=== PATIENT | female | born 2000 ===

== ENCOUNTER 2020-04-17 17:32 | Outpatient (REF) | payer MEDICAID, SELFPAY ==
--- NOTE | ~2020-04-17 | US_ITS ---
EXAMINATION: US OBSTETRICAL LESS THAN 14 WEEKS US OBSTETRICAL TRANSVAGINAL CLINICAL INFORMATION: Bleeding and cramping in early . COMPARISON: None TECHNIQUE: Pelvic ultrasound was performed both endovaginally and transabdominally. FINDINGS: A thickened heterogeneous endometrium is present measuring 1.4 cm. Some persistent components are present within the endometrium and some may be pulsatile or hypervascular. A gestational sac or pole is not seen. Findings could represent retained products of conception. The ovaries appear unremarkable with the right measuring 2.1 x 1.4 x 2.0 cm and the left measuring 2.5 x 1.8 x 2.0 cm. No free fluid is present in the cul-de-sac. US/US OB transvaginal IMPRESSION: A gestational sac or pole was not seen. The endometrium is thickened with some cystic components possibly representing retained products of conception. Please correlate with hCG levels and consider follow up ultrasound study.
--- NOTE | ~2020-04-17 | US_ITS ---
EXAMINATION: US OBSTETRICAL LESS THAN 14 WEEKS US OBSTETRICAL TRANSVAGINAL CLINICAL INFORMATION: Bleeding and cramping in early . COMPARISON: None TECHNIQUE: Pelvic ultrasound was performed both endovaginally and transabdominally. FINDINGS: A thickened heterogeneous endometrium is present measuring 1.4 cm. Some persistent components are present within the endometrium and some may be pulsatile or hypervascular. A gestational sac or pole is not seen. Findings could represent retained products of conception. The ovaries appear unremarkable with the right measuring 2.1 x 1.4 x 2.0 cm and the left measuring 2.5 x 1.8 x 2.0 cm. No free fluid is present in the cul-de-sac. US/US OB <= 14 weeks fetus IMPRESSION: A gestational sac or pole was not seen. The endometrium is thickened with some cystic components possibly representing retained products of conception. Please correlate with hCG levels and consider follow up ultrasound study.
== END 2020-04-17 17:33 | disposition home or self-care (01) ==
LOC: HO.US 17:32
PROVIDERS: PCP Family Medicine; Visit Provider Family Medicine
DX: Z32.01 Encounter for pregnancy test, result positive (principal)
CPT/HCPCS: 76801; 76817

== ENCOUNTER → 2021-04-19 11:36 | Outpatient (BNVA) | payer MEDICAID, SELFPAY | PROVIDERS: PCP Family Medicine; Visit Provider Obstetrics & Gynecology ==

== ENCOUNTER 2021-04-25 10:17 | Outpatient (REF) | payer MEDICAID, SELFPAY ==
--- NOTE | ~2021-04-25 | US_ITS ---
EXAMINATION: US PELVIS CLINICAL INFORMATION: AUB. COMPARISON: None TECHNIQUE: Ultrasound of the pelvis is performed using both transabdominal and transvaginal transducers along with Doppler. Transvaginal imaging is performed due to inadequate visualization transabdominally. FINDINGS: Uterus: The uterus is anteverted, anteflexed and measures 7.66 x 3.86 x 5.13 cm. The double wall endometrial thickness is 1.21 mm. The uterus is smooth in contour and has normal myometrial echogenicity. No visible fibroid. Adnexa: Both ovaries are visualized. There is normal color flow to the adnexa. There is no ovarian torsion. There is no pelvic ascites or fluid collection. Right ovary measures 4.57 x 2.76 x 2.42 cm and volume 15.98 mL. There is an anechoic cyst with internal echogenic septation. The cyst measures 1.8 x 1.5 x 1.33 cm. Left ovary measures 2.63 x 1.55 x 2.79 cm and volume 5.96 mL. Small follicles are seen. There is a small amount of free fluid in the cul-de-sac. US/US pelvic and transvaginal IMPRESSION: Complex cyst in right ovary. Follicular cyst left ovary. The uterus and cervix is unremarkable. Minimal expected free fluid in the cul-de-sac.
== END 2021-04-25 10:18 | disposition home or self-care (01) ==
LOC: HO.HMGCX 10:17
PROVIDERS: PCP Family Medicine; Visit Provider Advanced Practice Midwife
DX: N93.9 Abnormal uterine and vaginal bleeding, unspecified (principal)
CPT/HCPCS: 76830; 76856

== ENCOUNTER 2021-04-28 06:45 | Emergency (ER) | payer MEDICAID, SELFPAY ==
[2021-04-28 07:22] VITALS: BP 91/51; PULSE 73; RESP 16; TEMP 37; O2SAT 100; BMI 23.8
--- NOTE | 2021-04-28 09:31 | ED.WOUNDLAC ---
HPI - Wound/Laceration General Chief Complaint: Wound/Laceration <BOSSMAN Contrersa - Last Filed: 04/28/21 09:54> Stated Complaint: fingernail inj <BOSSMAN Contreras - Last Filed: 04/28/21 09:54> Time Seen by Provider: 04/28/21 09:31 <BOSSMAN Contreras - Last Filed: 04/28/21 09:54> History of Present Illness HPI narrative: Patient complains of fingernail injury to right ring finger, she bent it backwards and now the finger nail is loose, no other injury no other complaint <BOSSMAN Contreras - Last Filed: 04/28/21 09:54> Related Data Allergies/Adverse Reactions: Allergies Allergy/AdvReac Type Severity Reaction Status Date / Time No Known Allergies Allergy Unverified 04/20/20 10:47 <BOSSMAN Contreras - Last Filed: 04/28/21 09:54> Review of Systems Review of Systems: Positive for right fingernail injury Negatives are no numbness no weakness no tingling no laceration no joint pain <BOSSMAN Contreras - Last Filed: 04/28/21 09:54> Yes all other systems are reviewed and are negative <BOSSMAN Contreras - Last Filed: 04/28/21 09:54> [facility] Past Medical History Source: nursing notes reviewed <BOSSMAN Contreras - Last Filed: 04/28/21 09:54> Social History Social History: Social History Patient Tobacco Use Status: Never used Tobacco Advance Directives: No Advance Directives Information Provided: No Patient : No <BOSSMAN Contreras - Last Filed: 04/28/21 09:54> Physical Exam Vital Signs: Vital Signs: Last Vital Signs Temp 98.6 F 04/28/21 07:22 Pulse 73 04/28/21 07:22 Resp 16 04/28/21 07:22 BP 91/51 L 04/28/21 07:22 Pulse Ox 100 04/28/21 07:22 BMI result Body Mass Index 23.8 <BOSSMAN Contreras Last Filed: 04/28/21 09:54> General appearance no acute distress Head is normocephalic atraumatic Neck is supple Respiratory no distress Extremities full range of motion x4 Right ring finger has a partially avulsed nail, no laceration, neurovascular intact all joints full range of motion in right hand and finger <BOSSMAN Contreras Last Filed: 04/28/21 09:54> Course Course Course Narrative: Right ring finger is anesthetized with 5 cc of 1% lidocaine digital block The partially avulsed nail was clipped acct the nailbed leaving the remainder in the nail fold, no bleeding, bandage applied <BOSSMAN Contreras Last Filed: 04/28/21 09:54> Discharge Plan Discharge Clinical Impression: Nail avulsion, finger <BOSSMAN Contreras Last Filed: 04/28/21 09:54> Patient Disposition: Home, Self-Care <BOSSMAN Contreras Last Filed: 04/28/21 09:54> Additional Instructions: I removed the loose piece of nail but the base of the nail is still under the skin in the new nail should grow out with no problem Cover with a Band-Aid return any concerns <BOSSMAN Contreras Last Filed: 04/28/21 09:54> Interventions: ED Discharge Assessment Last Done: 04/28/21 10:02 <BOSSMAN Contreras Last Filed: 04/28/21 09:54> Discharge Date/Time: 04/28/21 10:04 <BOSSMAN Contreras Last Filed: 04/28/21 09:54>
[2021-04-28] MEDS: Lidocaine HCl 1 % MPF 5 ML VIAL SUBCUT ×2 (09:47→09:48)
== END 2021-04-28 10:04 | disposition home or self-care (01) ==
PROVIDERS: Emergency Provider Emergency Medicine; PCP Family Medicine
DX: S61.304A Unspecified open wound of right ring finger with damage to nail, initial encounter (principal); W22.09XA Striking against other stationary object, initial encounter; Y93.9 Activity, unspecified; Y92.9 Unspecified place or not applicable; Y99.9 Unspecified external cause status
CPT/HCPCS: 11730; 99283; 99284

== ENCOUNTER 2021-08-01 14:28 | Outpatient (REF) | payer MEDICAID, SELFPAY ==
--- NOTE | ~2021-08-01 | US_ITS ---
EXAMINATION: US PELVIS CLINICAL INFORMATION: Right ovarian cyst. COMPARISON: Ultrasound pelvis 04/25/2021. TECHNIQUE: Ultrasound of the pelvis is performed using both transabdominal and transvaginal transducers along with Doppler. Transvaginal imaging is performed due to inadequate visualization transabdominally. FINDINGS: Uterus: The uterus is anteverted, anteflexed and measures 7.5 cm in length, 3.7 cm in AP and 5.9 cm in transverse dimension. The double wall endometrial thickness is 0.3 cm. Small amount of free fluid in the cervix. The uterus is smooth in contour and has normal myometrial echogenicity. No visible fibroid. Adnexa: Both ovaries are visualized. There is normal color flow to the adnexa. There is no ovarian torsion. There is no pelvic ascites or fluid collection. Right ovary measures 4.5 x 2.0 x 2.4 cm and volume 11.3 mL. There are anechoic paraovarian cysts measuring 1.7 x 0.8 x 0.9 cm and 1.6 x 1.3 x 1.0 cm. Complex cyst seen in the right ovary on the previous exam has resolved. Left ovary measures 2.7 x 1.8 x 2.1 cm and volume 5.3 mL. Previously, left ovary measured 2.6 x 1.6 x 2.8 cm. There is a small amount of free fluid in the cul-de-sac. US/US pelvic and transvaginal IMPRESSION: The uterus is unremarkable except for minimal fluid in the cervix. Paraovarian simple cyst right adnexa. No right ovarian complex cyst seen at this time. Unremarkable left ovary. Small amount of free fluid in the cul-de-sac.
== END 2021-08-01 14:29 | disposition home or self-care (01) ==
LOC: HO.US 14:28
PROVIDERS: PCP Family Medicine; Visit Provider Advanced Practice Midwife
DX: N83.291 Other ovarian cyst, right side (principal)
CPT/HCPCS: 76830; 76856

== ENCOUNTER 2021-12-10 20:16 | Emergency (ER) | payer MEDICAID, SELFPAY ==
[2021-12-10 21:34] VITALS: BP 110/65; PULSE 78; RESP 15; TEMP 36.7; O2SAT 100; BMI 21.3
--- OUTSIDE RECORDS SUMMARY | 2021-12-10 23:53 | XMS_ITS | Continuity of Care Document ---
:2000 Author Organization [facility] Address [address] [place] [id number]- Care Team Providers Name Role Phone Not on Staff, PCP Primary Care Physician Unavailable Encounter [facility] Date(s): 10/26/21 - 11/25/21 [facility] [address], [address] [place] [id number] Patient Care team information PersonnelName: Not on Staff, PCP
[2021-12-11] MEDS: hydrOXYzine HCL 25 MG TABLET PO (03:01)
[2021-12-11 03:22] LABS: COVID-19 Test Negative (Negative); IDNOW Serial# 16C4AD1C; Influenza A Negative (Negative); Influenza B2 Negative (Negative)
--- NOTE | 2021-12-11 03:23 | ED.EYEPROB ---
HPI - Eye Problem General Chief complaint: Eye Problems Stated complaint: swelling in eyes, Time Seen by Provider: 12/11/21 02:53 Source: patient Mode of arrival: ambulatory Limitations: no limitations History of Present Illness HPI Narrative: Patient 2 months has some cold symptoms for last few days prior to arrival she noticed swelling of the both lower eyelids with itching no other rash no history of any allergies Related Data Previous Rx's Medication Instructions Recorded hydroxyzine HCl 25 mg tablet 25 mg PO Q8H PRN nausea and 12/11/21 vomiting #10 tabs olopatadine 0.1 % eye drops 1 drp ophthalmic (eye) BID #5 mL 12/11/21 (Pataday Twice Daily Relief) Allergies Allergy/AdvReac Type Severity Reaction Status Date / Time No Known Allergies Allergy Verified 12/10/21 21:34 Review of Systems Review of Systems: Yes all other systems are reviewed and are negative [facility] Social History Social History Patient Tobacco Use Status: Never used Tobacco Advance Directives: No Advance Directives Information Provided: Yes Physical Exam Vital Signs: Vital Signs: Last Vital Signs Temp 98.0 F 12/10/21 21:34 Pulse 78 12/10/21 21:34 Resp 15 12/10/21 21:34 BP 110/65 12/10/21 21:34 Pulse Ox 100 12/10/21 21:34 O2 Del Method 12/10/21 21:34 BMI result Body Mass Index 21.3 Appearance: Alert. Oriented X3. No acute distress. ENT: Pharynx normal. Oral Mucosa moist slight puffiness lower eyelid bilateral conjunctiva slightly erythematous with watery discharge oral mucosa normal tongue lips normal Neck: Normal inspection. Neck supple. CVS: Normal heart rate and rhythm. Pulses normal. Respiratory: No respiratory distress. Equal air entry bilateral, no wheezing/rales/rhonchi Skin: Skin warm and dry. Normal skin color. Normal skin turgor. Extremities: No lower extremity edema. Neuro: Oriented X 3. MDM - Eye Problem MDM Narrative Medical decision making narrative: Patient clinically allergic reaction discharge patient home on Atarax and Patanol eyedrops Lab Data Labs: Lab Results 12/11/21 12/11/21 Range/Units 02:56 02:56 COVID-19 (DINESH) Negative (Negative) COVID-19 Clin Com See Note Influenza Type A (GERDA) Negative (Negative) Influenza Type B (GERDA) Negative (Negative) Influenza A & B Note See Note Discharge Plan Discharge Clinical Impression: Acute allergic conjunctivitis Patient Disposition: Home, Self-Care Instructions: Conjunctivitis (ED) Prescriptions: New hydroxyzine HCl 25 mg tablet 25 mg PO Q8H PRN (Reason: nausea and vomiting) Qty: 10 0RF olopatadine [Pataday Twice Daily Relief] 0.1 % drops 1 drp ophthalmic (eye) BID Qty: 5 0RF Rx Instructions: separate doses by at least 6-8 hours Interventions: ED Discharge Assessment Last Done: 12/11/21 04:50 Discharge Date/Time: 12/11/21 04:51
== END 2021-12-11 04:51 | disposition home or self-care (01) ==
PROVIDERS: Emergency Provider Internal Medicine; PCP Family Medicine
DX: O98.811 Other maternal infectious and parasitic diseases complicating pregnancy, first trimester (principal); H10.13 Acute atopic conjunctivitis, bilateral; Z3A.08 8 weeks gestation of pregnancy; Z20.822 Contact with and (suspected) exposure to COVID-19
CPT/HCPCS: 87502; 87635; 99283

== ENCOUNTER 2022-09-19 04:08 | Emergency (ER) | payer MEDICAID, SELFPAY ==
[2022-09-19 04:10] VITALS: BP 116/63; PULSE 104; RESP 18; TEMP 36.5; O2SAT 99; BMI 23.4
--- NOTE | 2022-09-19 04:34 | ED.SKABFB ---
HPI - Skin/Abscess/Foreign Bdy General Chief complaint: Allergic Reaction Stated complaint: possible allergic reaction/rash Time Seen by Provider: 09/19/22 04:18 Source: patient and family Mode of arrival: ambulatory History of Present Illness HPI narrative: 22-year-old female states that she woke up at 03:00 with worsening rash to bilateral thighs and abdominal wall. Patient denies any exposure to soaps, shampoos but does state [place] in the [place]. Patient reports that the rash is itchy but denies any shortness of breath or difficulty swallowing and denies any lip/facial/tongue swelling. Related Data Previous Rx's Medication Instructions Recorded hydroxyzine HCl 25 mg tablet 25 mg PO Q8H PRN nausea and 12/11/21 vomiting #10 tabs olopatadine 0.1 % eye drops 1 drp ophthalmic (eye) BID #5 mL 12/11/21 (Pataday Twice Daily Relief) Allergies Allergy/AdvReac Type Severity Reaction Status Date / Time No Known Allergies Allergy Verified 09/19/22 04:15 Review of Systems Review of Systems: Pertinent positives and negatives as stated in HPI [facility] Past Medical History Source: nursing notes reviewed Social History Social History Alcohol intake: never Patient Tobacco Use Status: Never used Tobacco Smoked in Last 30 Days: No Use of substances other than those prescribed or required for medical reasons: No Advance Directives: No Advance Directives Information Provided: Yes Patient : No Physical Exam Vital Signs: Vital Signs: Last Vital Signs Temp 97.7 F 09/19/22 04:10 Pulse 104 H 09/19/22 04:10 Resp 18 09/19/22 04:10 BP 116/63 09/19/22 04:10 Pulse Ox 99 09/19/22 04:10 O2 Del Method Room Air 09/19/22 04:10 BMI result Body Mass Index 23.4 VITAL SIGNS: Reviewed. GENERAL: Well developed, well nourished, in no acute distress. HEAD: Normocephalic/atraumatic EYES: PERRLA, EOMI EARS: Ext canals without abnormality NOSE: Nares patent bilateral OROPHARYNX: no oral lesions noted, posterior pharynx clear NECK: Supple, no adenopathy LUNGS: Normal breath sounds. No adventitious sounds or accessory muscle use. SpO2<99> CARDIOVASCULAR: Regular rate and rhythm without noted murmurs ABDOMEN: Soft, non-tender, non-distended with bowel sounds. MUSCULOSKELETAL: No tenderness, deformities, or effusions noted on gross inspection. EXTREMITIES: No cyanosis, clubbing or edema. SKIN: Inspection of the skin reveals there is a rash noted to bilateral thighs this does not involve the posterior aspect and obvious scratching, the rash is also located on the lower aspect of the abdomen, there is no involvement of the palm or soles NEUROLOGIC: Alert and oriented x 4. Strength and sensation to light touch were grossly intact x 4. Medications Administered Discontinued Medications Generic Name Dose Route Start Last Admin Trade Name Freq PRN Reason Stop Dose Admin Diphenhydramine HCl 50 mg 09/19/22 04:28 09/19/22 04:59 Diphenhydramine Hcl 25 Mg Capsule PO 09/19/22 04:29 50 mg ONCE ONE Administration Medical Decision Making Medical Decision Making MDM Narrative: 22-year-old female with history and clinical presentation, DDX: Poison audrey, contact dermatitis. 50 mg of Benadryl administered On re-evaluation the rash has significantly improved, the patient continues to have no symptoms of angioedema or anaphylaxis. She is otherwise discharged home in stable condition with instructions to continue with [id number] Benadryl as needed for rash control. Patient is concerned that this may be secondary to a dog that she has in her home. Differential Diagnosis Differential Diagnoses: The differential diagnosis associated with the presentation includes Please see the discussion above Discharge Plan Discharge Clinical Impression: Urticaria, Allergic reaction Patient Disposition: Home, Self-Care Instructions: Urticaria (ED), General Allergic Reaction (ED) Additional Instructions: 1. Recomiende Benadryl de venta mariluz seg?n sea necesario para controlar el sarpullido bethanie las pr?ximas 24 a 48 horas. Garwin aaron medicamento luis se indica en el empaque exterior. 2. Seguimiento con kim proveedor de atenci?n primaria en los pr?ximos 1-2 d?as. Regrese a la jerrod de emergencias por cualquier s?ntoma que empeore, luis dificultad para respirar o hinchaz?n de labios, lengua o altagracia. 1. Recommend [id number] Benadryl as needed for rash control for the next 24-48 hours. Please take this medication as directed on the outside packaging. 2. Follow-up with your primary care provider in the next 1-2 days. Return to the ER for any worsening symptoms such as difficulty breathing or lip/tongue/a facial swelling. Prescriptions: No Action hydroxyzine HCl 25 mg tablet 25 mg PO Q8H PRN (Reason: nausea and vomiting) Qty: 10 0RF olopatadine [Pataday Twice Daily Relief] 0.1 % drops 1 drp ophthalmic (eye) BID Qty: 5 0RF Rx Instructions: separate doses by at least 6-8 hours Print Language: Belarusian
[2022-09-19] MEDS: diphenhydrAMINE HCL 25 MG CAPSULE 50 MG PO (04:59)
--- NOTE | 2022-09-19 05:29 | PC.NURSE ---
Benadryl given effective. Pt reports decrease itchiness, welts/hives noted but no redness to thighs and ABD noted.
== END 2022-09-19 05:43 | disposition home or self-care (01) ==
PROVIDERS: Emergency Provider Student in an Organized Health Care Education/Training Program
DX: L50.0 Allergic urticaria (principal)
CPT/HCPCS: 99283; 99284

== ENCOUNTER 2023-12-19 15:30 | Emergency (ER) | payer MEDICAID, SELFPAY ==
[2023-12-19] VITALS (10 sets, daily range): BP systolic 70–107; BP diastolic 39–67; PULSE 77–123; RESP 14–18; TEMP 36.7–37.1; O2SAT 97–99; BMI 22.2
--- NOTE | 2023-12-19 15:44 | ED_ITS ---
HPI - General Adult General Chief complaint: Allergic Reaction Stated complaint: allergic [id number] Time Seen by Provider: 12/19/23 16:12 History of Present Illness ED Provider: Sydnie CELIS narrative: The patient is a 23-year-old female who says that earlier today she ate a raise in bagel with a eggs. She then took a nap. While taking a nap she started to feel unwell. When she woke up she was very itchy and felt lightheaded as if she might pass out. She vomited multiple times. She developed an itchy rash. Eventually she came to the emergency room. Shortness of breath or chest pain. The patient reports a somewhat similar episode about a year ago when she came to the emergency room with a an itchy rash and was diagnosed with a nurse allergic reaction. The patient has had a tubal ligation. Related Data Previous Rx's ?Medication ?Instructions ?Recorded hydroxyzine HCl 25 mg tablet 25 mg PO Q8H PRN nausea and 12/11/21 vomiting #10 tabs olopatadine 0.1 % eye drops 1 drp ophthalmic (eye) BID #5 mL 12/11/21 (Pataday Twice Daily Relief) epinephrine 0.3 mg/0.3 mL 0.3 mg (0.3 mL) IM Q10M PRN 12/19/23 injection, auto-injector allergic reaction #2 ea Allergies Allergy/AdvReac Type Severity Reaction Status Date / Time No Known Allergies Allergy Verified 12/19/23 15:49 Review of Systems 2 Review of Systems: Yes all other systems are reviewed and are negative [facility] Social History Social History Alcohol intake: never Patient Tobacco Use Status: Never used Tobacco Smoked in Last 30 Days: No Use of substances other than those prescribed or required for medical reasons: No Advance Directives: No Advance Directives Information Provided: No Patient : No Physical Exam ED Vital Signs: Vital Signs - 24 hr 12/19/23 15:45 12/19/23 16:19 12/19/23 16:43 Temperature 98.0 F Pulse Rate 123 H 93 84 Respiratory Rate 18 14 16 Blood Pressure 70/44 L 107/67 87/54 L Pulse Oximetry 97 99 98 Oxygen Delivery Method Room Air Room Air Room Air 12/19/23 17:07 12/19/23 17:10 12/19/23 17:23 Temperature Pulse Rate 77 86 Respiratory Rate 16 Blood Pressure 81/44 L 90/39 L 96/52 L Pulse Oximetry 98 Oxygen Delivery Method Room Air 12/19/23 17:37 12/19/23 17:41 12/19/23 19:28 Temperature 98.8 F 98.6 F Pulse Rate 86 98 Respiratory Rate 18 16 Blood Pressure 90/51 L 103/54 L 93/49 L Pulse Oximetry 99 98 Oxygen Delivery Method Room Air Room Air 12/19/23 19:30 Temperature 98.6 F Pulse Rate 98 Respiratory Rate 16 Blood Pressure 93/49 L Pulse Oximetry 98 Oxygen Delivery Method Room Air BMI result Body Mass Index 22.2 Const Other: The patient looks quite pale. She was lying flat. She looks weak. No signs of respiratory distress or obvious acute discomfort. HENMT Other: Face is symmetrical. Mucous membranes moist. Airway clear. Eyes Other: Pupils are round equal, conjunctivae are clear, extraocular movements intact Neck Other: No stridor Resp Effort & Inspection: normal respiratory effort Auscultation: clear to auscultation bilaterally Cardio Rate: regular rate Rhythm: regular rhythm Heart sounds: S1 normal heart sound present and S2 normal heart sound present GI Other: Abdomen is soft and nontender Skin Other: The skin was very pale. Apparently the patient had had a rash at triage that had resolved by the time I had seen the patient. Neuro Other: The patient looks weak and pale but is awake and alert with a normal mental status. Cranial nerves are grossly intact. Moving all 4 extremities weakly but symmetrically and appropriately. Extrem Other: No peripheral edema Course Course Course Narrative: This is an RME performed by Colleen Eric CNP: Additional HPI, ROS, PE not included below will be deferred to primary provider. Patient is a 23-year-old female presents emergency department for evaluation of concern for an allergic reaction. She has diffuse erythematous rash various areas of maculopapular involvement as well as urticarial. Reports onset of rash at approximately 13:00 today after waking up from a nap and had associated dizziness/ lightheadedness and nausea. Reports that just before she consumed a raisin bagel with scrambled eggs (has consumed in the past without difficulty). Denies any known allergies. She has no associated shortness of breath or difficulty breathing. She has had 2 episodes of diarrhea since arrival to the emergency department within 15 minutes. Exam: Mild erythema of the posterior oropharynx without edema, speaking clear full sentences, lung sounds clear bilaterally. Rash as per narrative above. Tachycardic in the 120s, various different automated BP readings 144/124, 77/44, no manual BP available, when assisting to the restroom she had a near syncopal episode, no fall, was assisted to sit on the toilet and then vomited a large volume, she was becoming increasingly pale but remained verbal and answering questions appropriately Plan: Brought directly to ED bed 3, serum labs, Solu-Medrol, Benadryl, Pepcid, ondansetron Medications Administered Discontinued Medications Generic Name Dose Route Start Last Admin Trade Name Freq PRN Reason Stop Dose Admin Diphenhydramine HCl 50 mg 12/19/23 16:00 12/19/23 16:11 Diphenhydramine Hcl 50 Mg/Ml Vial IVPUSH 12/19/23 16:01 50 mg ONCE ONE Administration Epinephrine 0.3 mg 12/19/23 17:00 12/19/23 17:10 Epinephrine 1 Mg/Ml Vial IM 12/19/23 17:01 0.3 mg STAT STA Administration Famotidine 20 mg 12/19/23 16:03 12/19/23 16:12 Famotidine/Pf 20 Mg/2 Ml Vial IVPUSH 12/19/23 16:04 20 mg ONCE ONE Administration Sodium Chloride 1,000 mls @ 999 mls/hr 12/19/23 16:15 12/19/23 17:57 Ns IV 12/19/23 17:15 Infused .Q1H1M PEÑA Infusion Methylprednisolone Sodium Succinate 60 mg 12/19/23 16:00 12/19/23 16:14 Methylprednisolone Sod Succ 125 Mg/2 Ml Vial IVPUSH 12/19/23 16:01 60 mg ONCE ONE Administration Ondansetron HCl 4 mg 12/19/23 16:03 12/19/23 16:11 Ondansetron Hcl 4 Mg/2 Ml Vial IVPUSH 12/19/23 16:04 4 mg ONCE ONE Administration Medical Decision Making Medical Decision Making [facility] Narrative: The patient presents with what seems to be an allergic reaction. At triage she had apparently had a fairly full body rash. This had resolved by the time I saw the patient. When I saw the patient she looked pale and hypotensive. On the assumption that this is an allergic reaction she was given IV diphenhydramine, IV famotidine, IV methylprednisolone, and IM epinephrine. The patient was observed. Ultimately she seemed to feel significantly better. Her color improved. It is not clear if this was some kind of a food allergy. She says that the food that she had eaten prior to her symptoms were all foods she had eaten before. Ultimately she looked well enough for discharge. She will be discharged with the an EpiPen and advised to avoid any of the foods that she ate prior to this reaction. She should follow up with her PCP for allergy testing or referral to an sleeve machine tender. Lab Data 12/19/23 16:52 12/19/23 16:52 Labs: Lab Results 12/19/23 12/19/23 12/19/23 Range/Units 16:52 17:35 17:36 WBC 17.4 H (4.8-10.8) X10*3/uL RBC 4.88 (4.20-5.50) X10*6/uL Hgb 15.0 (12.0-16.0) g/dl Hct 44.1 (37.0-47.0) % MCV 90.4 (80.0-98.0) fL MCH 30.7 (27.0-33.0) pg MCHC 34.0 (31.0-35.0) g/dl RDW 12.0 (11.0-16.0) % Plt Count 229 (160-400) X10*3/uL MPV 11.0 (9.4-12.3) fL Immature Gran % (Auto) 0.4 (0.0-0.4) % Neut % (Auto) 82.9 H (45-73) % Lymph % (Auto) 12.6 L (20-40) % [place] % (Auto) 3.6 (2-11) % Eos % (Auto) 0.3 (0-4) % Baso % (Auto) 0.2 (0-2) % Lymph # (Auto) 2.2 (1.2-4.9) X10*3/uL [place] # (Auto) 0.6 (0.1-1.2) X10*3/uL Eos # (Auto) 0.1 (0.0-0.4) X10*3/uL Baso # (Auto) 0.0 (0.0-0.2) X10*3/uL Abs Immat Gran (auto) 0.07 H (0.00-0.03) X10*3/uL Absolute Neuts (auto) 14.4 H (2.0-8.3) x10*3/uL Absolute Nucleated RBC 0.000 (0.0-0.012) X10*3/uL Nucleated RBC % (auto) 0.0 (0.0-0.2) /100WBC ESR 1 (0-20) MM/HR Sodium 140 (135-145) mmol/L Potassium 4.1 (3.3-5.1) mmol/L Chloride 112 H (96-108) mmol/L Carbon Dioxide 20 L (22-29) mmol/L Anion Gap 12 (12-20) BUN 14 (9-16) mg/dL Creatinine 0.82 (0.5-1.4) mg/dL Estim Creat Clear Calc 72.8 Estimated GFR > 60 Random Glucose 121 H (60-115) mg/dL Calcium 8.7 (8.4-10.2) mg/dL Magnesium 1.9 (1.6-2.6) mg/dL Total Bilirubin 1.1 H (0.0-1.0) mg/dL AST 28 (5-31) U/L ALT 25 (0-31) U/L Alkaline Phosphatase 68 (39-117) U/L C-Reactive Protein < 0.10 (< or = 0.50) mg/dL Total Protein 6.2 L (6.5-8.0) g/dL Albumin 3.7 (3.5-5.0) g/dL Beta HCG, Quant < 2 mIU/mL Critical Care Time Critical Care Time Critical Care Time: Yes Total Critical Care Time: 35 Attestation: The patient was critically ill with a high probability of imminent or life- threatening deterioration. ?I spent greater than 30 minutes of discontinuous time evaluating the patient, delivering critical care at the bedside, discussing evaluating data with consultants. ?Critical care time does not include time spent performing separately billable procedures or teaching. ?Time spent performing critical care with 35 minutes. Discharge Plan Discharge Clinical Impression: Allergic reaction Patient Disposition: Home, Self-Care Additional Instructions: I believe you had some kind of an allergic reaction today. It is possible that there was something in what you ate today that might have had a different additive or some other subtle difference today. I would therefore avoid the foods that you ate today until you get further testing. Please contact your regular doctor's office on Friday to make a follow up appointment to arrange for allergy testing or referral to an sleeve machine tender. I have sent a prescription for an EpiPen to your pharmacy. You may use this if you feel you have another significant reaction. If you feel that you need to use the EpiPen you should return to the emergency room, call 911 if you feel very bad. Prescriptions: New epinephrine 0.3 mg/0.3 mL auto-injector 0.3 mg IM Q10M PRN (Reason: allergic reaction) Qty: 2 0RF Rx Instructions: for 2 doses No Action hydroxyzine HCl 25 mg tablet 25 mg PO Q8H PRN (Reason: nausea and vomiting) Qty: 10 0RF olopatadine [Pataday Twice Daily Relief] 0.1 % drops 1 drp ophthalmic (eye) BID Qty: 5 0RF Rx Instructions: separate doses by at least 6-8 hours Referrals: Maddie Thompson DO [Primary Care Provider] - (Probable allergic reaction) Interventions: ED Discharge Assessment Last Done: 12/19/23 19:30 Discharge Date/Time: 12/19/23 19:31 Print Language: Guinean
--- NOTE | 2023-12-19 16:03 | ECG_ITS ---
Test Reason : NEAR SYNCOPE/DIZZINESS Blood Pressure : / mmHG Vent. Rate : 090 BPM Atrial Rate : 090 BPM P-R Int : 120 ms QRS Dur : 072 ms QT Int : 354 ms P-R-T Axes : -01 036 032 degrees QTc Int : 433 ms Normal sinus rhythm Normal ECG When compared with ECG of 17-APR-2017 04:45, Previous ECG has undetermined rhythm, needs review Referred By: Lindsey Eric Electronically Signed By:Tino Travis
[2023-12-19] MEDS: ondansetron HCL 4 MG/2 ML VIAL IVPUSH (16:11)
[2023-12-19] MEDS: diphenhydrAMINE HCL 50 MG/ML VIAL IVPUSH (16:11)
[2023-12-19] MEDS: Famotidine/PF 20 MG/2 ML VIAL IVPUSH (16:12)
[2023-12-19] MEDS: methylPREDNISolone Sod Succ 125 MG/2 ML VIAL 60 MG IVPUSH (16:14)
[2023-12-19] MEDS: 0.9 % Sodium Chloride 1,000 ML 999 ML IV (16:17)
--- NOTE | 2023-12-19 16:43 | PC.NURSE ---
pt remains hypotensive at this time. IVF continues to infuse at this time. otherwise vss and up to date. nsr on the supervisor lace tearing. pt seems to remain pale despite fluids infusing. no sob/wob noted. respirations remain even/unlabored. provider notified/aware. plan of care ongoing. call levy placed within reach.
[2023-12-19 16:57] LABS: MANUAL DIFF FLAG NO
[2023-12-19 16:58] LABS: Basophils Percent Auto 0.2 % (0-2); Eosinophils Absolute Auto 0.1 X10*3/uL (0.0-0.4); Eosinophils Percent Auto 0.3 % (0-4); Hematocrit 44.1 % (37.0-47.0); Imm Gran Abs Auto 0.07 X10*3/uL (0.00-0.03); Imm Gran Pct Auto 0.4 % (0.0-0.4); Lymphocytes Absolute Auto 2.2 X10*3/uL (1.2-4.9); Lymphocytes Percent Auto 12.6 % (20-40); Mean Corpuscular Hemoglobin 30.7 pg (27.0-33.0); Mean Corpuscular Volume 90.4 fL (80.0-98.0); Monocytes Absolute Auto 0.6 X10*3/uL (0.1-1.2); Monocytes Percent Auto 3.6 % (2-11); Neutrophils Absolute Auto 14.4 x10*3/uL (2.0-8.3); Neutrophils Percent Auto 82.9 % (45-73); Platelet Count 229 X10*3/uL (160-400); Red Blood Count 4.88 X10*6/uL (4.20-5.50); White Blood Count 17.4 X10*3/uL (4.8-10.8)
[2023-12-19] MEDS: EPINEPHrine 1 MG/ML VIAL 0.3 MG IM (17:10)
--- NOTE | 2023-12-19 17:13 | PC.NURSE ---
pt remains hypotensive/continues to have diffuse rash throughout. pt reports itchiness/pain as she states she feels swollen. medication administered per provider order. pt remains in no respiratory distress. no sob/wob noted. respirations even/unlabored. lung sounds CTA. plan of care ongoing.
[2023-12-19 17:15] LABS: Alanine Aminotransferase 25 U/L (0-31); Albumin Level 3.7 g/dL (3.5-5.0); Alkaline Phosphatase 68 U/L (39-117); Anion Gap 12 (12-20); Aspartate Amino Transferase 28 U/L (5-31); Bilirubin Total 1.1 mg/dL (0.0-1.0); Blood Urea Nitrogen 14 mg/dL (9-16); C Reactive Protein < 0.10 mg/dL (< or = 0.50); Calcium 8.7 mg/dL (8.4-10.2); Carbon Dioxide 20 mmol/L (22-29); Chloride 112 mmol/L (96-108); Creatinine Clr Calc Pharmacy 72.8; Estimated Glomerular Filt Rate > 60; Glucose Random 121 mg/dL (60-115); Magnesium 1.9 mg/dL (1.6-2.6); Potassium 4.1 mmol/L (3.3-5.1); Sodium 140 mmol/L (135-145); Total Protein 6.2 g/dL (6.5-8.0)
[2023-12-19 18:06] LABS: HCG Quantitative < 2 mIU/mL
[2023-12-19 18:26] LABS: Erythrocyte Sedimentation Rate 1 MM/HR (0-20)
== END 2023-12-19 19:31 | disposition home or self-care (01) ==
PROVIDERS: Nurse Practitioner Family; Physician Assistant Medical; Emergency Provider Emergency Medicine; PCP Family Medicine
DX: R11.2 Nausea with vomiting, unspecified (principal); R06.02 Shortness of breath; R07.89 Other chest pain; L29.9 Pruritus, unspecified; T78.1XXA Other adverse food reactions, not elsewhere classified, initial encounter; X58.XXXA Exposure to other specified factors, initial encounter; Z79.899 Other long term (current) drug therapy
CPT/HCPCS: 36415; 80053; 83735; 84702; 85025; 85652; 86140; 93005; 96361; 96372; 96374; 96375; 99285; J0171; J1200; J2405; J2919

== ENCOUNTER → 2023-12-19 16:03 | Outpatient (BNV) | payer MEDICAID, SELFPAY | PROVIDERS: Emergency Provider Emergency Medicine; PCP Family Medicine; Visit Provider Internal Medicine Cardiovascular Disease | DX: R55 Syncope and collapse (principal) | CPT/HCPCS: 93010 ==

== ENCOUNTER 2024-01-02 20:28 | Emergency (ER) | payer MEDICAID, SELFPAY ==
[2024-01-02 20:34] VITALS: BP 113/70; PULSE 90; RESP 18; TEMP 37.2; O2SAT 100; BMI 19.2
--- NOTE | 2024-01-02 20:37 | ED_ITS ---
HPI - General Adult General Chief complaint: Allergic Reaction Stated complaint: allergic reaction Time Seen by Provider: 01/02/24 21:07 History of Present Illness ED Provider: Sydnie CELIS narrative: The patient is a 23-year-old female who was seen here almost 2 weeks ago for an allergic reaction after she ate some food. Her symptoms were fairly severe and associated with hypotension and so she was given an EpiPen at the time of discharge from the emergency room. It was not clear what she had eaten that might have triggered the allergic reaction at that time. She says that today she again ate a bagel with cream cheese. She says today that she had not m entioned having a smoothie with a banana and peanut butter when she was here 2 weeks ago. She had a similar smoothly today. Today after eating the bagel with cream cheese as well as the smoothie made with peanut butter and banana she developed symptoms very similar to the symptoms she had that brought her to the emergency room 2 weeks ago. This included a rash and itchiness. She administered the EpiPen and came to the emergency room. She had some throat tightness prior to the EpiPen. Related Data Previous Rx's ?Medication ?Instructions ?Recorded hydroxyzine HCl 25 mg tablet 25 mg PO Q8H PRN nausea and 12/11/21 vomiting #10 tabs olopatadine 0.1 % eye drops 1 drp ophthalmic (eye) BID #5 mL 12/11/21 (Pataday Twice Daily Relief) epinephrine 0.3 mg/0.3 mL 0.3 mg (0.3 mL) IM Q10M PRN 12/19/23 injection, auto-injector allergic reaction #2 ea Allergies Allergy/AdvReac Type Severity Reaction Status Date / Time No Known Allergies Allergy Verified 01/02/24 20:38 Review of Systems Review of Systems: Yes all other systems are reviewed and are negative [facility] Social History Social History Alcohol intake: never Patient Tobacco Use Status: Never used Tobacco Smoked in Last 30 Days: No Use of substances other than those prescribed or required for medical reasons: No Advance Directives: No Advance Directives Information Provided: No Do you have a plan to hurt others: No Plan Physical Exam ED Vital Signs: Vital Signs - 24 hr 01/02/24 20:34 01/02/24 21:38 01/02/24 23:24 Temperature 98.9 F 98.7 F 98.7 F Pulse Rate 90 85 85 Respiratory Rate 18 19 19 Blood Pressure 113/70 98/53 L 98/53 L Pulse Oximetry 100 100 100 Oxygen Delivery Method Room Air Room Air Room Air BMI result Body Mass Index 19.2 Const Other: The patient was awake and alert. At the time that I saw her she had already received some diphenhydramine that has been ordered at triage. She seems somewhat sleepy. She did not seem in acute distress. HENMT Other: Face is symmetrical. No intraoral swelling. Mucous membranes moist. Eyes General: appearance normal, both eyes and all related structures Neck Other: Neck is supple. No stridor. Resp Effort & Inspection: normal respiratory effort Auscultation: clear to auscultation bilaterally Cardio Rate: regular rate Rhythm: regular rhythm Heart sounds: S1 normal heart sound present and S2 normal heart sound present GI Other: Abdomen is soft and nontender Skin Other: Skin is somewhat pale but without rash. Apparently she had had hives at triage but these seemed to have resolved. Neuro Other: The patient was sleepy but coherent. Cranial nerves 2-12 intact. She moves her extremities normally. Grossly neurologically intact. Extrem Other: No peripheral edema Course Course Course Narrative: This is an RME done by BOSSMAN Gillis: Additional HPI, ROS, PE not included below will be deferred to primary provider. 23 yo f presents with allergic reaction to unknown substance and/or food, patient reports about an hour ago she had to give herself an EpiPen she has a rash she feels like her throat is closing, she feels overall unwell. She reports she was in this hospital for similar thing in the past. Has not taken Benadryl or anything other than EpiPen. Plan- monitored bed for obs Medications Administered Discontinued Medications Generic Name Dose Route Start Last Admin Trade Name Freq PRN Reason Stop Dose Admin Diphenhydramine HCl 50 mg 01/02/24 20:37 01/02/24 20:48 Diphenhydramine Hcl 50 Mg/Ml Vial IVPUSH 01/02/24 20:38 50 mg ONCE ONE Administration Famotidine 20 mg 01/02/24 20:37 01/02/24 20:48 Famotidine/Pf 20 Mg/2 Ml Vial IVPUSH 01/02/24 20:38 20 mg ONCE ONE Administration Sodium Chloride 1,000 mls @ 999 mls/hr 01/02/24 21:45 01/02/24 22:57 Ns IV 01/02/24 22:45 Infused .Q1H1M PEÑA Infusion Methylprednisolone Sodium Succinate 125 mg 01/02/24 20:37 01/02/24 20:48 Methylprednisolone Sod Succ 125 Mg/2 Ml Vial IVPUSH 01/02/24 20:38 125 mg ONCE ONE Administration Medical Decision Making Medical Decision Making [facility] Narrative: The patient is a 23-year-old female presents after developing symptoms of an allergic reaction for which she gave herself an EpiPen. She had a similar reaction 2 weeks ago when she was prescribed the EpiPen. I had seen her on the previous occasion. Today she tells me that on the previous occasion and on this occasion as well she had had a smoothie containing banana and peanut butter. She had not mentioned this previously. I suspect that her allergic symptoms are probably related to the banana or peanut butter rather than the bagel and cream cheese that she also had on both occasions. The patient looked well enough after a period of observation. She had received IV diphenhydramine, IV famotidine, and IV steroids. She has an additional EpiPen at home already. She will be discharged to follow up with the [facility] where she gets her primary care to discuss allergy testing or referral to an nursing service director. Discharge Plan Discharge Clinical Impression: Allergic reaction Patient Disposition: Home, Self-Care Instructions: General Allergic Reaction (ED) Additional Instructions: I suspect that your allergic reaction might be related to what was in the smoothie you had. You might be allergic to either peanut butter or bananas. Therefore please avoid these foods. Please contact your regular doctor's office on Friday to make a follow up appointment and discuss allergy testing or referral to an nursing service director. Please keep your EpiPen handy. If at any point you feel you were having a similar reaction in the future please use your EpiPen and return to the emergency room as you did today. Prescriptions: No Action hydroxyzine HCl 25 mg tablet 25 mg PO Q8H PRN (Reason: nausea and vomiting) Qty: 10 0RF olopatadine [Pataday Twice Daily Relief] 0.1 % drops 1 drp ophthalmic (eye) BID Qty: 5 0RF Rx Instructions: separate doses by at least 6-8 hours epinephrine 0.3 mg/0.3 mL auto-injector 0.3 mg IM Q10M PRN (Reason: allergic reaction) Qty: 2 0RF Rx Instructions: for 2 doses Referrals: Maddie Thompson DO [Primary Care Provider] - (Allergic reaction) Interventions: ED Discharge Assessment Last Done: 01/02/24 23:24 Discharge Date/Time: 01/02/24 23:26 Print Language: Cypriot
[2024-01-02] MEDS: methylPREDNISolone Sod Succ 125 MG/2 ML VIAL IVPUSH (20:48)
[2024-01-02] MEDS: Famotidine/PF 20 MG/2 ML VIAL IVPUSH (20:48)
[2024-01-02] MEDS: diphenhydrAMINE HCL 50 MG/ML VIAL IVPUSH (20:48)
[2024-01-02] MEDS: 0.9 % Sodium Chloride 1,000 ML 999 ML IV (21:37)
[2024-01-02 21:38] VITALS: BP 98/53; PULSE 85; RESP 19; TEMP 37.1; O2SAT 100
[2024-01-02 23:24] VITALS: BP 98/53; PULSE 85; RESP 19; TEMP 37.1; O2SAT 100
== END 2024-01-02 23:26 | disposition home or self-care (01) ==
PROVIDERS: Emergency Provider Emergency Medicine; PCP Family Medicine
DX: T78.40XA Allergy, unspecified, initial encounter (principal); R21 Rash and other nonspecific skin eruption; X58.XXXA Exposure to other specified factors, initial encounter
CPT/HCPCS: 96361; 96374; 96375; 99284; J1200; J2919

== ENCOUNTER 2024-02-08 11:20 | Emergency (ER) | payer MEDICAID, SELFPAY ==
--- NOTE | ~2024-02-08 | XR_ITS ---
EXAMINATION: XR CHEST CLINICAL INFORMATION: chest pain COMPARISON: None available. TECHNIQUE: 2 views of the chest were obtained. FINDINGS: Normal heart and mediastinal contour. No focal consolidation. No pleural effusion. No pneumothorax. No acute osseous abnormality. XR/XR chest 2V IMPRESSION: Unremarkable examination. Electronically signed by: Adin Calix MD 02/08/2024 01:49 PM EST
--- NOTE | 2024-02-08 11:22 | ECG_ITS ---
Test Reason : cp Blood Pressure : / mmHG Vent. Rate : 062 BPM Atrial Rate : 062 BPM P-R Int : 114 ms QRS Dur : 086 ms QT Int : 416 ms P-R-T Axes : -13 041 023 degrees QTc Int : 422 ms Normal sinus rhythm Normal ECG When compared with ECG of 19-DEC-2023 16:24, No significant change was found Referred By: Lindsey Eric Electronically Signed By:REED QURESHI
[2024-02-08 11:34] VITALS: BP 117/52; PULSE 64; RESP 16; TEMP 36.4; O2SAT 100; BMI 20.9
--- NOTE | 2024-02-08 11:35 | ED_ITS ---
HPI - General Adult General Chief complaint: General Medical Stated complaint: Chest pain, nausea flu? Time Seen by Provider: 02/08/24 12:46 Source: patient Mode of arrival: ambulatory Limitations: no limitations History of Present Illness ED Provider: Maribel Sorto APRN HPI narrative: 23-year-old female with no known medical history presents the ER with complaints of 3 days of nausea, vomiting, diarrhea and chest burning. Patient reports both of her children had similar symptoms at home. She reports multiple episodes of nonbloody, nonbilious emesis. Last episode was this morning. She did have diarrhea for the last 2 days for has had no diarrhea today. Stools are brown and nonbloody. She reports subjective fevers and chills. Generalized abdominal cramping. Feels like she is having some chest discomfort described as burning which is constant. She denies any shortness of breath, urinary symptoms, skin rash, headache, neck pain, neck stiffness. No recent travel. Related Data Previous Rx's ?Medication ?Instructions ?Recorded hydroxyzine HCl 25 mg tablet 25 mg PO Q8H PRN nausea and 12/11/21 vomiting #10 tabs olopatadine 0.1 % eye drops 1 drp ophthalmic (eye) BID #5 mL 12/11/21 (Pataday Twice Daily Relief) epinephrine 0.3 mg/0.3 mL 0.3 mg (0.3 mL) IM Q10M PRN 12/19/23 injection, auto-injector allergic reaction #2 ea ondansetron 4 mg disintegrating 4 mg PO Q6H PRN nausea and 02/08/24 tablet vomiting #15 tabs Allergies Allergy/AdvReac Type Severity Reaction Status Date / Time No Known Allergies Allergy Verified 02/08/24 11:36 Review of Systems 2 Review of Systems: Yes all other systems are reviewed and are negative Constitutional: Constitutional: Reports no additional constitutional complaints, Denies body ache(s), Reports chills, Reports fever(s), Denies headache(s) and Denies weakness Eyes: Eyes: Reports no additional eye complaints and Denies change in vision ENT: Reports system reviewed and no additional complaints, except as documented, Denies dizziness, Denies headache(s), Denies nasal congestion, Denies nasal discharge and Denies neck pain Cardiovascular: Cardiovascular: Reports no additional cardiovascular complaints, Reports chest pain, Denies leg edema and Denies dyspnea Respiratory: Respiratory: Reports no additional respiratory complaints, Denies cough and Denies dyspnea Gastrointestinal: Gastrointestinal: Reports no additional gastrointestinal complaints, Reports abdominal pain, Reports diarrhea, Reports nausea and Reports vomiting Genitourinary: Genitourinary: Reports no additional female genitourinary complaints and Denies urinary incontinence Musculoskeletal: Musculoskeletal: Reports no additional musculoskeletal complaints, Denies back pain, Denies arthralgias, Denies joint swelling, Denies neck pain, Denies numbness and Denies tingling Integumentary/Breasts: Skin/Breast: Reports system reviewed and no additional complaints, except as docu and Denies rash Neurologic: Reports system reviewed and no additional complaints, except as documented, Denies Abnormal speech present, Denies dizziness, Denies headache(s), Denies numbness, Denies tingling and Denies weakness PMFSH Past Medical History Attestation statement: The following information was validated with the patient. Source: old records reviewed and nursing notes reviewed Social History Social History Alcohol intake: never Patient Tobacco Use Status: Never used Tobacco Advance Directives: No Advance Directives Information Provided: Yes Do you have a plan to hurt others: No Plan Physical Exam ED Vital Signs: Vital Signs - 24 hr 02/08/24 11:34 Temperature 97.6 F Pulse Rate 64 Respiratory Rate 16 Blood Pressure 117/52 L Pulse Oximetry 100 Oxygen Delivery Method Room Air BMI result Body Mass Index 20.9 Const General: cooperative, healthy appearing, comfortable and no acute distress Orientation/consciousness: patient oriented x3 Limitations: no limitations HENMT Head: Yes normal to inspection Ears: hearing grossly normal bilaterally and TM's normal bilaterally General nose exam: Normal external nose present Face and sinus: Yes normal facial exam Mouth: Normal oral and palatal mucosa present Throat: Yes posterior oropharynx normal, Yes tonsils normal and Yes uvula midline Eyes General: appearance normal, both eyes and all related structures Pupils: Equal, round and reactive pupils present Neck Neck: Yes normal visual inspection, Yes full ROM, Yes no lymphadenopathy and Yes no meningeal signs Chest Chest palpation & inspection: normal inspection of the chest Resp Effort & Inspection: normal respiratory effort Auscultation: clear to auscultation bilaterally Cardio Rate: regular rate Rhythm: regular rhythm Peripheral pulses: Peripheral pulses 2+ throughout GI Inspection: Yes normal to inspection and No distended Palpation (GI): Soft to palpation and nontender Auscultation: normal bowel sounds Back/Spine/Pelvis Thoracic/Lumbar Spine: thoracic and lumbar spine normal to inspection Skin General skin exam: no rashes or lesions noted Neuro General: patient oriented x3, no meningeal signs, no focal motor deficits and normal sensation to monofilament Cranial nerves: Yes Equal, round and reactive pupils present Cognition (Neuro): normal cognition Speech: No Abnormal speech present Gait exam (Neuro): Normal gait present Motor exam (neuro): 5/5 motor strength present throughout Extrem General: Yes normal to inspection Course Course Course Narrative: This is an RME performed by Colleen Eric CNP: Additional HPI, ROS, PE not included below will be deferred to primary provider. Patient is a 23-year-old female who presents emergency department for evaluation of nausea, non-bloddy vomiting once daily, and watery non-bloody diarrhea a couple episodes yesterday over the past 2-3 days. Reports that today she was experiencing diffuse anterior chest pain. denies URI symptoms. Denies symptoms. Denies possibility for plan: Serum labs, viral serologies, EKG, UA/hCG Reevaluation(s) Reevaluation #1: Now tolerating PO. Likely viral syndrome. Recommend supportive measures at home. Reviewed worrisome signs and symptoms of when to return to the emergency room. Comfortable plan for discharge home Medications Administered Discontinued Medications Generic Name Dose Route Start Last Admin Trade Name Alonzoq PRN Reason Stop Dose Admin Ondansetron HCl 4 mg 02/08/24 12:49 02/08/24 12:52 Ondansetron Odt 4 Mg Tab.Rapdis TRANSLINGU 02/08/24 12:50 4 mg ONCE ONE Administration Medical Decision Making Medical Decision Making [facility] Narrative: 23-year-old female with no known medical history presents the ER with complaints of 3 days of nausea, vomiting, diarrhea and chest burning. Patient reports both of her children had similar symptoms at home. She reports multiple episodes of nonbloody, nonbilious emesis. Last episode was this morning. She did have diarrhea for the last 2 days for has had no diarrhea today. Stools are brown and nonbloody. She reports subjective fevers and chills. Generalized abdominal cramping. Feels like she is having some chest discomfort described as burning which is constant. She denies any shortness of breath, urinary symptoms, skin rash, headache, neck pain, neck stiffness. No recent travel. Abdomen soft and nontender. Lungs are clear. Vitals are stable. Patient does not appear dehydrated. She is sipping on some clear liquids. Will obtain labs, viral testing, EKG, chest x-ray Patient reports she is no longer having diarrhea or I would obtain stool studies Will give sublingual Zofran and p.o. trial Differential Diagnosis Differential Diagnoses: The differential diagnosis associated with the presentation includes Gastroenteritis Low suspicion for infectious diarrhea, C diff, acute abdomen such as appendicitis, diverticulitis, ovarian torsion, PID, ectopic Admission/Observation Consideration of admission/observation: Escalation of care including admission/observation considered Gastroenteritis, night tolerating p.o.. No need for IV fluids and or admission Lab Data MDM Lab Attestation statement: I reviewed the patient's lab results. 02/08/24 11:55 02/08/24 11:55 Labs: Lab Results 02/08/24 Range/Units 11:55 WBC 4.3 L (4.8-10.8) X10*3/uL RBC 4.00 L (4.20-5.50) X10*6/uL Hgb 12.3 (12.0-16.0) g/dl Hct 35.8 L (37.0-47.0) % MCV 89.5 (80.0-98.0) fL MCH 30.8 (27.0-33.0) pg MCHC 34.4 (31.0-35.0) g/dl RDW 12.2 (11.0-16.0) % Plt Count 190 (160-400) X10*3/uL MPV 10.9 (9.4-12.3) fL Immature Gran % (Auto) 0.5 H (0.0-0.4) % Neut % (Auto) 59.7 (45-73) % Lymph % (Auto) 23.6 (20-40) % [place] % (Auto) 11.1 H (2-11) % Eos % (Auto) 4.6 H (0-4) % Baso % (Auto) 0.5 (0-2) % Lymph # (Auto) 1.0 L (1.2-4.9) X10*3/uL [place] # (Auto) 0.5 (0.1-1.2) X10*3/uL Eos # (Auto) 0.2 (0.0-0.4) X10*3/uL Baso # (Auto) 0.0 (0.0-0.2) X10*3/uL Abs Immat Gran (auto) 0.02 (0.00-0.03) X10*3/uL Absolute Neuts (auto) 2.6 (2.0-8.3) x10*3/uL Absolute Nucleated RBC 0.000 (0.0-0.012) X10*3/uL Nucleated RBC % (auto) 0.0 (0.0-0.2) /100WBC Sodium 141 (135-145) mmol/L Potassium 3.4 (3.3-5.1) mmol/L Chloride 106 (96-108) mmol/L Carbon Dioxide 28 (22-29) mmol/L Anion Gap 10 L (12-20) BUN 8 L (9-16) mg/dL Creatinine 0.80 (0.5-1.4) mg/dL Estim Creat Clear Calc 74.5 Estimated GFR > 60 Random Glucose 115 (60-115) mg/dL Calcium 9.2 (8.4-10.2) mg/dL Magnesium 1.9 (1.6-2.6) mg/dL Total Bilirubin 1.0 (0.0-1.0) mg/dL AST 27 (5-31) U/L ALT 35 H (0-31) U/L Alkaline Phosphatase 70 (39-117) U/L Troponin I High Sens < 2.7 (<3.5-17.0) ng/L Total Protein 7.3 (6.5-8.0) g/dL Albumin 4.4 (3.5-5.0) g/dL Lipase 12 (8-78) U/L Urine Color Dark Yellow Urine Appearance Cloudy Urine pH 5.5 (5.0-9.0) Ur Specific [place] >= 1.030 H (1.005-1.025) Urine Protein Trace (Neg-Trace) mg/dL Urine Glucose (UA) Negative (Negative) mg/dL Urine Ketones Trace (Negative) mg/dL Urine Blood Small (1+) H (Negative) Urine Nitrite Negative (Negative) Ur Leukocyte Esterase Negative (Negative) Urine RBC 6-10 H (0-2) /HPF Urine WBC 6-10 (0-5) /HPF Ur Squamous Epith Cells >20 (0-2) /HPF Urine Bacteria 4+ (None Seen) Hyaline Casts 0-2 (0-2) /LPF Urine Test NEGATIVE (NEGATIVE) Influenza Type A (PCR) NEGATIVE (Negative) Influenza Type B (PCR) NEGATIVE (Negative) RSV RNA Qual (PCR) NEGATIVE (Negative) SARS-CoV-2 RNA (RT-PCR) NEGATIVE (Negative) Independent Interpretation I performed an independent interpretation of an: EKG and Plain X-Ray Interpretation: I independently reviewed the EKG which shows normal sinus rhythm with a rate of 60 shoe, normal AL, normal QRS, or QT I independently viewed the x-ray and agree with the radiology report Radiology Impression Discussion of test interpretation with radiology: I have reviewed the radiologist's reading. Radiologist Impression: [place] [id number] XRay Report Signed Patient: Lizzy Seaman MR#: [id number] : 2000 Acct:[id number] Age/Sex: 23 / F ADM Date: 02/08/24 Loc: .ED Attending Dr: Ordering Physician: Lindsey Eric CNP Date of Service: 02/08/24 Procedure(s): XR chest 2V Accession Number(s): [id number] cc: Lindsey Eric CNP; Maddie Thompson DO~ EXAMINATION: XR CHEST CLINICAL INFORMATION: chest pain COMPARISON: None available. TECHNIQUE: 2 views of the chest were obtained. FINDINGS: Normal heart and mediastinal contour. No focal consolidation. No pleural effusion. No pneumothorax. No acute osseous abnormality. XR/XR chest 2V IMPRESSION: Unremarkable examination. Electronically signed by: Adin Calix MD 02/08/2024 01:49 PM [facility] Tests considered The following testing was considered but not selected: No focal abdominal pain to suggest need for CT imaging Prescription Management I considered prescription management with: Antibiotic Discharge Plan Discharge Clinical Impression: Gastroenteritis Patient Disposition: Home, Self-Care Instructions: Gastroenteritis (ED) Additional Instructions: Your testing for flu, COVID, RSV are negative Your lab work is reassuring Your EKG is normal. Your chest x-ray shows no signs of pneumonia Take Zofran for nausea as needed. Start with clear liquids and advance her diet as tolerated Use Motrin or Tylenol for any pain or fever Return to the emergency room for any changes symptoms Prescriptions: New ondansetron 4 mg tablet,disintegrating 4 mg PO Q6H PRN (Reason: nausea and vomiting) Qty: 15 0RF No Action hydroxyzine HCl 25 mg tablet 25 mg PO Q8H PRN (Reason: nausea and vomiting) Qty: 10 0RF olopatadine [Pataday Twice Daily Relief] 0.1 % drops 1 drp ophthalmic (eye) BID Qty: 5 0RF Rx Instructions: separate doses by at least 6-8 hours epinephrine 0.3 mg/0.3 mL auto-injector 0.3 mg IM Q10M PRN (Reason: allergic reaction) Qty: 2 0RF Rx Instructions: for 2 doses Referrals: Maddie Thompson DO [Primary Care Provider] - 1 week (as needed) Print Language: [place]
[2024-02-08 12:03] LABS: Basophils Percent Auto 0.5 % (0-2); Eosinophils Absolute Auto 0.2 X10*3/uL (0.0-0.4); Eosinophils Percent Auto 4.6 % (0-4); Hematocrit 35.8 % (37.0-47.0); Hemoglobin 12.3 g/dl (12.0-16.0); Imm Gran Abs Auto 0.02 X10*3/uL (0.00-0.03); Imm Gran Pct Auto 0.5 % (0.0-0.4); Lymphocytes Percent Auto 23.6 % (20-40); MANUAL DIFF FLAG NO; Mean Corpuscular HGB Conc 34.4 g/dl (31.0-35.0); Mean Corpuscular Hemoglobin 30.8 pg (27.0-33.0); Mean Corpuscular Volume 89.5 fL (80.0-98.0); Mean Platelet Volume 10.9 fL (9.4-12.3); Monocytes Absolute Auto 0.5 X10*3/uL (0.1-1.2); Monocytes Percent Auto 11.1 % (2-11); Neutrophils Absolute Auto 2.6 x10*3/uL (2.0-8.3); Neutrophils Percent Auto 59.7 % (45-73); Platelet Count 190 X10*3/uL (160-400); Red Cell Distribution Width 12.2 % (11.0-16.0); White Blood Count 4.3 X10*3/uL (4.8-10.8)
[2024-02-08 12:05] LABS: Appearance Urine Cloudy; Color Urine Dark Yellow; Glucose Urine UA Negative (Negative); Leukocyte Esterase Urine Negative (Negative); Nitrite Urine Negative (Negative); PH 5.5 (5.0-9.0); Specific Gravity - Urine >= 1.030 (1.005-1.025); UMIC TRIGGER UACC YES; Urine Blood Small (1+) (Negative); Urine Ketones Trace mg/dL (Negative); Urine Protein Trace mg/dL (Neg-Trace)
[2024-02-08 12:06] LABS: UPreg QC Valid YES; Urine Pregnancy NEGATIVE (NEGATIVE)
[2024-02-08 12:17] LABS: Alanine Aminotransferase 35 U/L (0-31); Albumin Level 4.4 g/dL (3.5-5.0); Alkaline Phosphatase 70 U/L (39-117); Anion Gap 10 (12-20); Aspartate Amino Transferase 27 U/L (5-31); Blood Urea Nitrogen 8 mg/dL (9-16); Calcium 9.2 mg/dL (8.4-10.2); Carbon Dioxide 28 mmol/L (22-29); Chloride 106 mmol/L (96-108); Creatinine Clr Calc Pharmacy 74.5; Estimated Glomerular Filt Rate > 60; Glucose Random 115 mg/dL (60-115); Lipase 12 U/L (8-78); Magnesium 1.9 mg/dL (1.6-2.6); Potassium 3.4 mmol/L (3.3-5.1); Sodium 141 mmol/L (135-145); Total Protein 7.3 g/dL (6.5-8.0)
[2024-02-08 12:20] LABS: Bacteria Urine 4+ (None Seen); Hyaline Casts Urine 0-2 /LPF (0-2); Squamous Epithelial Cell Urine >20 /HPF (0-2); UACC Culture Trigger YES
[2024-02-08 12:39] LABS: Influenza A PCR NEGATIVE (Negative); Influenza B PCR NEGATIVE (Negative); Resp Syncy Virus RNA Qual PCR NEGATIVE (Negative); SARS COV2 PCR INHOUSE NEGATIVE (Negative)
[2024-02-08] MEDS: Ondansetron ODT 4 MG TAB.RAPDIS TRANSLINGU (12:52)
[2024-02-08 13:13] LABS: Troponin-I High Sensitivity < 2.7 ng/L (<3.5-17.0)
[2024-02-08 14:29] VITALS: BP 117/52; PULSE 64; RESP 16; TEMP 36.4; O2SAT 100
== END 2024-02-08 14:29 | disposition home or self-care (01) ==
PROVIDERS: Nurse Practitioner Family; Emergency Provider Emergency Medicine; PCP Family Medicine
DX: K52.9 Noninfective gastroenteritis and colitis, unspecified (principal); R07.89 Other chest pain; R11.0 Nausea; R50.9 Fever, unspecified; R10.9 Unspecified abdominal pain; Z03.818 Encounter for observation for suspected exposure to other biological agents ruled out; Z79.899 Other long term (current) drug therapy
CPT/HCPCS: 0241U; 71046; 80053; 81001; 81003; 81025; 83690; 83735; 84484; 85025; 87086; 93005; 99283

== ENCOUNTER → 2024-02-08 11:22 | Outpatient (BNV) | payer MEDICAID, SELFPAY | PROVIDERS: Emergency Provider Emergency Medicine; PCP Family Medicine; Visit Provider Internal Medicine | DX: R07.9 Chest pain, unspecified (principal) | CPT/HCPCS: 93010 ==

== ENCOUNTER 2024-03-18 00:39 | Emergency (ER) | payer MEDICAID, SELFPAY ==
[2024-03-18 00:53] VITALS: BP 107/55; PULSE 85; RESP 18; TEMP 36.8; O2SAT 98; BMI 21.4
--- NOTE | 2024-03-18 01:46 | ED_ITS ---
HPI - General Adult General Chief complaint: Allergic Reaction Stated complaint: allergic reaction used her epi pen Time Seen by Provider: 03/18/24 01:46 History of Present Illness ED Provider: Sydnie CELIS narrative: The patient is a 23-year-old female who developed itchy hives over much of her body tonight while eating at 21:00. The patient had had problems with similar reactions 2-3 months ago. She was in the emergency room here twice for full body hives allergic reactions that were thought to be secondary to food. She has been prescribed EpiPen at that time and was advised to follow up with an health equipment servicer. She had followed up with her regular doctor at the [facility] but there has been a problem with the referral to an health equipment servicer and it has not yet happened. The patient says that tonight she was eating rice and beans and avocado and maybe some other foods when she developed a total body rash that also affected her lips. She used her EpiPen and came to the hospital. She still has some hives on her abdomen but overall she is feeling much better. He lives feel better. She has no shortness of breath. No difficulty swallowing. She is quite certain she is not . Related Data Previous Rx's ?Medication ?Instructions ?Recorded hydroxyzine HCl 25 mg tablet 25 mg PO Q8H PRN nausea and 12/11/21 vomiting #10 tabs olopatadine 0.1 % eye drops 1 drp ophthalmic (eye) BID #5 mL 12/11/21 (Pataday Twice Daily Relief) epinephrine 0.3 mg/0.3 mL 0.3 mg (0.3 mL) IM Q10M PRN 12/19/23 injection, auto-injector allergic reaction #2 ea ondansetron 4 mg disintegrating 4 mg PO Q6H PRN nausea and 02/08/24 tablet vomiting #15 tabs epinephrine 0.3 mg/0.3 mL 0.3 mg (0.3 mL) IM Q15M PRN 03/18/24 injection, auto-injector (EpiPen anaphylaxis #2 ea 2-Jeb) loratadine 10 mg tablet 10 mg PO DAILY PRN allergy 03/18/24 symptoms #20 tabs Allergies Allergy/AdvReac Type Severity Reaction Status Date / Time No Known Allergies Allergy Verified 03/18/24 00:55 Review of Systems Review of Systems: Yes all other systems are reviewed and are negative [facility] Social History Social History Alcohol intake: never Patient Tobacco Use Status: Never used Tobacco Smoked in Last 30 Days: No Use of substances other than those prescribed or required for medical reasons: No Advance Directives: No Advance Directives Information Provided: Yes Do you have a plan to hurt others: No Plan Patient : No Physical Exam ED Vital Signs: Vital Signs - 24 hr 03/18/24 00:53 03/18/24 02:24 03/18/24 02:35 Temperature 98.3 F 98.0 F 98.5 F Pulse Rate 85 85 79 Respiratory Rate 18 21 H 18 Blood Pressure 107/55 L 95/58 L 157/69 H Pulse Oximetry 98 98 94 Oxygen Delivery Method Room Air Room Air Room Air BMI result Body Mass Index 21.4 Const Other: The patient is a 23-year-old woman who looks his though she is ordinarily quite healthy. She was not in any distress at the time that I interviewed her. HENMT Other: There was no rash on the face. No swelling of the lips. No swelling in the mouth. Eyes General: appearance normal, both eyes and all related structures Neck Other: No stridor Neck: Yes full ROM Resp Effort & Inspection: normal respiratory effort Auscultation: clear to auscultation bilaterally Cardio Rate: regular rate Rhythm: regular rhythm Heart sounds: S1 normal heart sound present and S2 normal heart sound present GI Other: there were hives on the skin of the abdomen. The abdomen was soft nontender. Skin Other: The patient has hives on her trunk, mostly on the abdomen. Neuro Other: The patient is awake and alert with normal mental status. She is grossly neurologically intact. Extrem Other: No peripheral edema. Medications Administered Discontinued Medications Generic Name Dose Route Start Last Admin Trade Name Freq PRN Reason Stop Dose Admin Famotidine 20 mg 03/18/24 02:02 03/18/24 02:20 Famotidine 20 Mg Tablet PO 03/18/24 02:03 20 mg ONCE ONE Administration Loratadine 10 mg 03/18/24 02:02 03/18/24 02:20 Loratadine 10 Mg Tablet PO 03/18/24 02:03 10 mg ONCE ONE Administration Prednisone 40 mg 03/18/24 02:02 03/18/24 02:23 Prednisone 20 Mg Tablet PO 03/18/24 02:03 40 mg ONCE ONE Administration Medical Decision Making Medical Decision Making MDM Narrative: The patient presents with having experienced lip swelling and diffuse urticaria at home after eating some food. She administered an EpiPen and came to the hospital. She was feeling considerably better at the time that I evaluated her. I saw this patient 2 times last December for similar but more severe reactions. At that time she had been prescribed epi pens and had been advised to see an health equipment servicer. She has followed up with her PCP but it seems as though the referral to an health equipment servicer has been difficult. Tonight the patient was already doing quite well by the time I saw her. She was given a dose of loratadine and famotidine and a single dose of prednisone. She will be given a new prescription for EpiPen. She is once again encouraged to see an health equipment servicer. Discharge Plan Discharge Clinical Impression: Allergic reaction, Urticaria Patient Disposition: Home, Self-Care Instructions: Urticaria (ED), General Allergic Reaction (ED) Additional Instructions: You seemed to have had another significant allergic reaction. I have sent another prescription for EpiPen to your pharmacy. I have also sent a prescription for the nonsedating antihistamine loratadine that you may use as needed. Please contact your regular doctor's office to follow through with a referral to an health equipment servicer. My hope is that you get allergy testing soon. Please return if worse. Prescriptions: New epinephrine [EpiPen 2-Jeb] 0.3 mg/0.3 mL auto-injector 0.3 mg IM Q15M PRN (Reason: anaphylaxis) Qty: 2 0RF Rx Instructions: for 2 doses loratadine 10 mg tablet 10 mg PO DAILY PRN (Reason: allergy symptoms) Qty: 20 0RF No Action hydroxyzine HCl 25 mg tablet 25 mg PO Q8H PRN (Reason: nausea and vomiting) Qty: 10 0RF olopatadine [Pataday Twice Daily Relief] 0.1 % drops 1 drp ophthalmic (eye) BID Qty: 5 0RF Rx Instructions: separate doses by at least 6-8 hours epinephrine 0.3 mg/0.3 mL auto-injector 0.3 mg IM Q10M PRN (Reason: allergic reaction) Qty: 2 0RF Rx Instructions: for 2 doses ondansetron 4 mg tablet,disintegrating 4 mg PO Q6H PRN (Reason: nausea and vomiting) Qty: 15 0RF Referrals: [facility] [Provider Group] (urticaria, allergic reaction) Interventions: ED Discharge Assessment Last Done: 03/18/24 02:35 Discharge Date/Time: 03/18/24 02:35 Print Language: Urdu
[2024-03-18] MEDS: Loratadine 10 MG TABLET PO (02:20)
[2024-03-18] MEDS: Famotidine 20 MG TABLET PO (02:20)
[2024-03-18] MEDS: predniSONE 20 MG TABLET 40 MG PO (02:23)
[2024-03-18 02:24] VITALS: BP 95/58; PULSE 85; RESP 21; TEMP 36.7; O2SAT 98
[2024-03-18 02:35] VITALS: BP 157/69; PULSE 79; RESP 18; TEMP 36.9; O2SAT 94
== END 2024-03-18 02:35 | disposition home or self-care (01) ==
PROVIDERS: Emergency Provider Emergency Medicine
DX: L50.9 Urticaria, unspecified (principal); T78.40XA Allergy, unspecified, initial encounter; X58.XXXA Exposure to other specified factors, initial encounter
CPT/HCPCS: 99283; 99284

== ENCOUNTER 2024-04-21 19:51 | Emergency (ER) | payer MEDICAID, SELFPAY ==
[2024-04-21 20:01] VITALS: BP 114/69; PULSE 103; RESP 19; TEMP 36.6; O2SAT 100; BMI 24.2
--- NOTE | 2024-04-21 20:01 | ED_ITS ---
HPI - General Adult General Chief complaint: Allergic Reaction Stated complaint: allergic reaction Time Seen by Provider: 04/21/24 20:19 Source: patient Limitations: no limitations History of Present Illness ED Provider: Kwasi [facility] narrative: 23yo female with history of allergic reaction presenting for allergic reaction. Pt states she had a smoothie with mangos, banana, strawberries, peanut butter and shortly after she began experiencing itchiness and throat swelling. She subsequently gave herself an epipen around 7pm with improvement in sxs. She is still experiencing itchiness however denies sensation of throat swelling. She never experienced shortness of breath, chest pain, n/v. Related Data Previous Rx's ?Medication ?Instructions ?Recorded hydroxyzine HCl 25 mg tablet 25 mg PO Q8H PRN nausea and 12/11/21 vomiting #10 tabs olopatadine 0.1 % eye drops 1 drp ophthalmic (eye) BID #5 mL 12/11/21 (Pataday Twice Daily Relief) epinephrine 0.3 mg/0.3 mL 0.3 mg (0.3 mL) IM Q10M PRN 12/19/23 injection, auto-injector allergic reaction #2 ea ondansetron 4 mg disintegrating 4 mg PO Q6H PRN nausea and 02/08/24 tablet vomiting #15 tabs epinephrine 0.3 mg/0.3 mL 0.3 mg (0.3 mL) IM Q15M PRN 03/18/24 injection, auto-injector (EpiPen anaphylaxis #2 ea 2-Jeb) loratadine 10 mg tablet 10 mg PO DAILY PRN allergy 03/18/24 symptoms #20 tabs epinephrine 0.3 mg/0.3 mL 0.3 mg (0.3 mL) IM Q10M PRN 04/21/24 injection, auto-injector (EpiPen anaphylaxis #2 ea 2-Jeb) Allergies Allergy/AdvReac Type Severity Reaction Status Date / Time No Known Allergies Allergy Verified 04/21/24 20:02 Review of Systems 2 Review of Systems: Yes all other systems are reviewed and are negative PMFSH Social History Social History Alcohol intake: never Patient Tobacco Use Status: Never used Tobacco Advance Directives: No Advance Directives Information Provided: Yes Do you have a plan to hurt others: No Plan Patient : No Physical Exam ED Vital Signs: Vital Signs - 24 hr 04/21/24 20:01 04/21/24 20:10 04/21/24 22:20 Temperature 97.8 F 98.0 F Pulse Rate 103 H 89 93 Respiratory Rate 19 16 14 Blood Pressure 114/69 115/71 91/50 L Pulse Oximetry 100 100 97 Oxygen Delivery Method Room Air Room Air Room Air 04/21/24 23:13 04/21/24 23:14 Temperature 98.2 F 98.2 F Pulse Rate 86 86 Respiratory Rate 16 16 Blood Pressure 94/50 L 94/50 L Pulse Oximetry 98 98 Oxygen Delivery Method Room Air Room Air BMI result Body Mass Index 24.2 Well-appearing female in no acute distress A&O x4; normal speech and cognition Oropharynx clear without edema and no stridor auscultated Lungs clear to auscultation bilaterally Normal S1-S2 regular rate and rhythm Abdomen is soft nontender distended Diffuse urticaria to neck and torso Course Course Course Narrative: RME, this is a rapid medical exam performed by Rob Salas please refer to primary provider for complete H&P- 23 year old female presents for evaluation of an allergic reaction She reports that she ate a smoothie but is unsure what she is allergic to. She felt an itchiness in her throat, then felt like her neck was swelling and then noticed hives. She gave herself an epipen 1-2 hours ago. She also reports that she took an allergy medication before that. Records indicate that she is prescribed Loratadine, Cetirizine, and Famotidine. She will be given a room, as she utilized her Epi-pen. No evidence of airway compromise in triage Medications Administered Discontinued Medications Generic Name Dose Route Start Last Admin Trade Name Freq PRN Reason Stop Dose Admin Diphenhydramine HCl 25 mg 04/21/24 20:24 04/21/24 20:33 Diphenhydramine Hcl 50 Mg/Ml Vial IVPUSH 04/21/24 20:25 25 mg ONCE ONE Administration Famotidine 20 mg 04/21/24 20:24 04/21/24 20:33 Famotidine/Pf 20 Mg/2 Ml Vial IVPUSH 04/21/24 20:25 20 mg ONCE ONE Administration Sodium Chloride 1,000 mls @ 999 mls/hr 04/21/24 20:30 04/21/24 22:28 Ns IV 04/21/24 21:30 Infused .Q1H1M PEÑA Infusion Medical Decision Making Medical Decision Making [facility] Narrative: 23-year-old female presents for allergic reaction -patient likely experienced allergic reaction to food product in her smoothly; at this time I am not concerned for anaphylaxis -will continue monitoring vitals; pt received epi at 7p and will be observed here until 11pm -fluids, Pepcid and Benadryl ordered On reassessment patient is still well appearing. She reports improvement in sxs. I believe she can be safely discharged. I instructed her to avoid the foods that were in her smoothie until she follows up with an correction lieutenant. I sent a script for EpiPen to her pharmacy. She states she has family to monitor her tonight. I gave her return precautions. Lab Data 04/21/24 20:19 04/21/24 20:19 Labs: Lab Results 04/21/24 Range/Units 20:19 WBC 14.6 H (4.8-10.8) X10*3/uL RBC 4.30 (4.20-5.50) X10*6/uL Hgb 13.2 (12.0-16.0) g/dl Hct 37.6 (37.0-47.0) % MCV 87.4 (80.0-98.0) fL MCH 30.7 (27.0-33.0) pg MCHC 35.1 H (31.0-35.0) g/dl RDW 12.1 (11.0-16.0) % Plt Count 272 D (160-400) X10*3/uL MPV 10.8 (9.4-12.3) fL Immature Gran % (Auto) 0.4 (0.0-0.4) % Neut % (Auto) 76.5 H (45-73) % Lymph % (Auto) 16.9 L (20-40) % [place] % (Auto) 4.5 (2-11) % Eos % (Auto) 1.3 (0-4) % Baso % (Auto) 0.4 (0-2) % Lymph # (Auto) 2.5 (1.2-4.9) X10*3/uL [place] # (Auto) 0.7 (0.1-1.2) X10*3/uL Eos # (Auto) 0.2 (0.0-0.4) X10*3/uL Baso # (Auto) 0.1 (0.0-0.2) X10*3/uL Abs Immat Gran (auto) 0.06 H (0.00-0.03) X10*3/uL Absolute Neuts (auto) 11.2 H (2.0-8.3) x10*3/uL Absolute Nucleated RBC 0.000 (0.0-0.012) X10*3/uL Nucleated RBC % (auto) 0.0 (0.0-0.2) /100WBC Sodium 137 (135-145) mmol/L Potassium 3.9 (3.3-5.1) mmol/L Chloride 103 (96-108) mmol/L Carbon Dioxide 23 (22-29) mmol/L Anion Gap 15 (12-20) BUN 14 (9-16) mg/dL Creatinine 0.78 (0.5-1.4) mg/dL Estim Creat Clear Calc 84.4 Estimated GFR > 60 Random Glucose 184 H (60-115) mg/dL Calcium 9.3 (8.4-10.2) mg/dL Total Bilirubin 0.8 (0.0-1.0) mg/dL AST 23 (5-31) U/L ALT 22 (0-31) U/L Alkaline Phosphatase 81 (39-117) U/L Total Protein 8.0 (6.5-8.0) g/dL Albumin 4.7 (3.5-5.0) g/dL Discharge Plan Discharge Clinical Impression: Allergic reaction Qualifiers: Encounter type: initial encounter Qualified Code(s): T78.40XA - Allergy, unspecified, initial encounter Patient Disposition: Home, Self-Care Instructions: General Allergic Reaction (ED), Allergy Testing (ED) Additional Instructions: Please pick the EpiPen sent to your pharmacy Please avoid any foods that were in your smoothie until you follow up with an correction lieutenant I listed a few different correction lieutenant in your discharge paperwork. Please give him a call tomorrow to schedule an appointment If you develop any new or worsening symptoms please return to emergency department Prescriptions: New epinephrine [EpiPen 2-Jeb] 0.3 mg/0.3 mL auto-injector 0.3 mg IM Q10M PRN (Reason: anaphylaxis) Qty: 2 0RF Rx Instructions: for 2 doses No Action hydroxyzine HCl 25 mg tablet 25 mg PO Q8H PRN (Reason: nausea and vomiting) Qty: 10 0RF olopatadine [Pataday Twice Daily Relief] 0.1 % drops 1 drp ophthalmic (eye) BID Qty: 5 0RF Rx Instructions: separate doses by at least 6-8 hours epinephrine 0.3 mg/0.3 mL auto-injector 0.3 mg IM Q10M PRN (Reason: allergic reaction) Qty: 2 0RF Rx Instructions: for 2 doses ondansetron 4 mg tablet,disintegrating 4 mg PO Q6H PRN (Reason: nausea and vomiting) Qty: 15 0RF epinephrine [EpiPen 2-Jeb] 0.3 mg/0.3 mL auto-injector 0.3 mg IM Q15M PRN (Reason: anaphylaxis) Qty: 2 0RF Rx Instructions: for 2 doses loratadine 10 mg tablet 10 mg PO DAILY PRN (Reason: allergy symptoms) Qty: 20 0RF Referrals: Brannon Auguste MD [Physician] - Lucio Isidro DO [Physician] - Jl Dudley [Physician] - Interventions: ED Discharge Assessment Last Done: 04/21/24 23:14 Discharge Date/Time: 04/21/24 23:15 Print Language: Malawian
[2024-04-21 20:10] VITALS: BP 115/71; PULSE 89; RESP 16; O2SAT 100
[2024-04-21 20:23] LABS: MANUAL DIFF FLAG NO
[2024-04-21 20:24] LABS: Basophils Absolute Auto 0.1 X10*3/uL (0.0-0.2); Basophils Percent Auto 0.4 % (0-2); Eosinophils Absolute Auto 0.2 X10*3/uL (0.0-0.4); Eosinophils Percent Auto 1.3 % (0-4); Hematocrit 37.6 % (37.0-47.0); Hemoglobin 13.2 g/dl (12.0-16.0); Imm Gran Abs Auto 0.06 X10*3/uL (0.00-0.03); Imm Gran Pct Auto 0.4 % (0.0-0.4); Lymphocytes Absolute Auto 2.5 X10*3/uL (1.2-4.9); Lymphocytes Percent Auto 16.9 % (20-40); Mean Corpuscular HGB Conc 35.1 g/dl (31.0-35.0); Mean Corpuscular Hemoglobin 30.7 pg (27.0-33.0); Mean Corpuscular Volume 87.4 fL (80.0-98.0); Mean Platelet Volume 10.8 fL (9.4-12.3); Monocytes Absolute Auto 0.7 X10*3/uL (0.1-1.2); Monocytes Percent Auto 4.5 % (2-11); Neutrophils Absolute Auto 11.2 x10*3/uL (2.0-8.3); Neutrophils Percent Auto 76.5 % (45-73); Platelet Count 272 X10*3/uL (160-400); Red Cell Distribution Width 12.1 % (11.0-16.0); White Blood Count 14.6 X10*3/uL (4.8-10.8)
--- NOTE | 2024-04-21 20:25 | ED_ITS ---
HPI - Allergic Reaction General Chief complaint: Allergic Reaction Stated complaint: allergic reaction Time Seen by Provider: 04/21/24 20:19 Source: patient Limitations: no limitations History of Present Illness ED Provider: Kwasi CELIS narrative: 23yo female with history of allergic reaction presenting for allergic reaction. Pt states she had a smoothie with mangos, banana, strawberries, peanut butter and shortly after she began experiencing itchiness and throat swelling. She subsequently gave herself an epipen around 7pm with improvement in sxs. She is still experiencing itchiness however denies sensation of throat swelling. She never experienced shortness of breath, chest pain, n/v. complaint: allergic reaction Related Data Previous Rx's ?Medication ?Instructions ?Recorded hydroxyzine HCl 25 mg tablet 25 mg PO Q8H PRN nausea and 12/11/21 vomiting #10 tabs olopatadine 0.1 % eye drops 1 drp ophthalmic (eye) BID #5 mL 12/11/21 (Pataday Twice Daily Relief) epinephrine 0.3 mg/0.3 mL 0.3 mg (0.3 mL) IM Q10M PRN 12/19/23 injection, auto-injector allergic reaction #2 ea ondansetron 4 mg disintegrating 4 mg PO Q6H PRN nausea and 02/08/24 tablet vomiting #15 tabs epinephrine 0.3 mg/0.3 mL 0.3 mg (0.3 mL) IM Q15M PRN 03/18/24 injection, auto-injector (EpiPen anaphylaxis #2 ea 2-Jeb) loratadine 10 mg tablet 10 mg PO DAILY PRN allergy 03/18/24 symptoms #20 tabs epinephrine 0.3 mg/0.3 mL 0.3 mg (0.3 mL) IM Q10M PRN 04/21/24 injection, auto-injector (EpiPen anaphylaxis #2 ea 2-Jeb) Allergies Allergy/AdvReac Type Severity Reaction Status Date / Time No Known Allergies Allergy Verified 04/21/24 20:02 Review of Systems 2 Review of Systems: Yes all other systems are reviewed and are negative PMFSH Social History Social History Alcohol intake: never Patient Tobacco Use Status: Never used Tobacco Advance Directives: No Advance Directives Information Provided: Yes Do you have a plan to hurt others: No Plan Patient : No Physical Exam ED Vital Signs: Vital Signs - 24 hr 04/21/24 20:01 04/21/24 20:10 Temperature 97.8 F Pulse Rate 103 H 89 Respiratory Rate 19 16 Blood Pressure 114/69 115/71 Pulse Oximetry 100 100 Oxygen Delivery Method Room Air Room Air BMI result Body Mass Index 24.2 Well-appearing female in no acute distress A&O x4; normal speech and cognition Oropharynx clear without edema and no stridor auscultated Lungs clear to auscultation bilaterally Normal S1-S2 regular rate and rhythm Abdomen is soft nontender distended Diffuse urticaria to neck and torso Medications Administered Discontinued Medications Generic Name Dose Route Start Last Admin Trade Name Freq PRN Reason Stop Dose Admin Diphenhydramine HCl 25 mg 04/21/24 20:24 04/21/24 20:33 Diphenhydramine Hcl 50 Mg/Ml Vial IVPUSH 04/21/24 20:25 25 mg ONCE ONE Administration Famotidine 20 mg 04/21/24 20:24 04/21/24 20:33 Famotidine/Pf 20 Mg/2 Ml Vial IVPUSH 04/21/24 20:25 20 mg ONCE ONE Administration Sodium Chloride 1,000 mls @ 999 mls/hr 04/21/24 20:30 04/21/24 22:28 Ns IV 04/21/24 21:30 Infused .Q1H1M PEÑA Infusion Medical Decision Making Medical Decision Making [facility] Narrative: 23-year-old female presents for allergic reaction -patient likely experienced allergic reaction to food product in her smoothly; at this time I am not concerned for anaphylaxis -will continue monitoring vitals; pt received epi at 7p and will be observed here until 11pm -fluids, Pepcid and Benadryl ordered On reassessment patient is still well appearing. This point I feel that she can be safely discharged. I instructed her to avoid the foods that were in her smoothie until she follows up with an retail attendant. I sent a script for EpiPen to her pharmacy. I gave her return precautions Lab Data 04/21/24 20:19 04/21/24 20:19 Labs: Lab Results 04/21/24 Range/Units 20:19 WBC 14.6 H (4.8-10.8) X10*3/uL RBC 4.30 (4.20-5.50) X10*6/uL Hgb 13.2 (12.0-16.0) g/dl Hct 37.6 (37.0-47.0) % MCV 87.4 (80.0-98.0) fL MCH 30.7 (27.0-33.0) pg MCHC 35.1 H (31.0-35.0) g/dl RDW 12.1 (11.0-16.0) % Plt Count 272 D (160-400) X10*3/uL MPV 10.8 (9.4-12.3) fL Immature Gran % (Auto) 0.4 (0.0-0.4) % Neut % (Auto) 76.5 H (45-73) % Lymph % (Auto) 16.9 L (20-40) % [place] % (Auto) 4.5 (2-11) % Eos % (Auto) 1.3 (0-4) % Baso % (Auto) 0.4 (0-2) % Lymph # (Auto) 2.5 (1.2-4.9) X10*3/uL [place] # (Auto) 0.7 (0.1-1.2) X10*3/uL Eos # (Auto) 0.2 (0.0-0.4) X10*3/uL Baso # (Auto) 0.1 (0.0-0.2) X10*3/uL Abs Immat Gran (auto) 0.06 H (0.00-0.03) X10*3/uL Absolute Neuts (auto) 11.2 H (2.0-8.3) x10*3/uL Absolute Nucleated RBC 0.000 (0.0-0.012) X10*3/uL Nucleated RBC % (auto) 0.0 (0.0-0.2) /100WBC Sodium 137 (135-145) mmol/L Potassium 3.9 (3.3-5.1) mmol/L Chloride 103 (96-108) mmol/L Carbon Dioxide 23 (22-29) mmol/L Anion Gap 15 (12-20) BUN 14 (9-16) mg/dL Creatinine 0.78 (0.5-1.4) mg/dL Estim Creat Clear Calc 84.4 Estimated GFR > 60 Random Glucose 184 H (60-115) mg/dL Calcium 9.3 (8.4-10.2) mg/dL Total Bilirubin 0.8 (0.0-1.0) mg/dL AST 23 (5-31) U/L ALT 22 (0-31) U/L Alkaline Phosphatase 81 (39-117) U/L Total Protein 8.0 (6.5-8.0) g/dL Albumin 4.7 (3.5-5.0) g/dL Discharge Plan Discharge Clinical Impression: Allergic reaction Patient Disposition: Home, Self-Care Instructions: General Allergic Reaction (ED), Allergy Testing (ED) Additional Instructions: Please pick the EpiPen sent to your pharmacy Please avoid any foods that were in your smoothie until you follow up with an retail attendant I listed a few different retail attendant in your discharge paperwork. Please give him a call tomorrow to schedule an appointment If you develop any new or worsening symptoms please return to emergency department Prescriptions: New epinephrine [EpiPen 2-Jeb] 0.3 mg/0.3 mL auto-injector 0.3 mg IM Q10M PRN (Reason: anaphylaxis) Qty: 2 0RF Rx Instructions: for 2 doses No Action hydroxyzine HCl 25 mg tablet 25 mg PO Q8H PRN (Reason: nausea and vomiting) Qty: 10 0RF olopatadine [Pataday Twice Daily Relief] 0.1 % drops 1 drp ophthalmic (eye) BID Qty: 5 0RF Rx Instructions: separate doses by at least 6-8 hours epinephrine 0.3 mg/0.3 mL auto-injector 0.3 mg IM Q10M PRN (Reason: allergic reaction) Qty: 2 0RF Rx Instructions: for 2 doses ondansetron 4 mg tablet,disintegrating 4 mg PO Q6H PRN (Reason: nausea and vomiting) Qty: 15 0RF epinephrine [EpiPen 2-Jeb] 0.3 mg/0.3 mL auto-injector 0.3 mg IM Q15M PRN (Reason: anaphylaxis) Qty: 2 0RF Rx Instructions: for 2 doses loratadine 10 mg tablet 10 mg PO DAILY PRN (Reason: allergy symptoms) Qty: 20 0RF Referrals: Brannon Auguste MD [Physician] - Lucio Isidro DO [Physician] - Jl Dudley [Physician] - Print Language: Irish
--- NOTE | 2024-04-21 20:28 | ECG_ITS ---
Test Reason : ALERGIC REACTION Blood Pressure : */* mmHG Vent. Rate : 85 BPM Atrial Rate : 85 BPM P-R Int : 124 ms QRS Dur : 86 ms QT Int : 374 ms P-R-T Axes : 35 36 39 degrees QTcB Int : 445 ms Normal sinus rhythm Normal ECG When compared with ECG of 08-Feb-2024 11:32, No significant change was found Referred By: Az Villalpando Electronically Signed By: Tino Travis
[2024-04-21] MEDS: Famotidine/PF 20 MG/2 ML VIAL IVPUSH (20:33)
[2024-04-21] MEDS: 0.9 % Sodium Chloride 1,000 ML 999 ML IV (20:33)
[2024-04-21] MEDS: diphenhydrAMINE HCL 50 MG/ML VIAL 25 MG IVPUSH (20:33)
[2024-04-21 20:38] LABS: Alanine Aminotransferase 22 U/L (0-31); Albumin Level 4.7 g/dL (3.5-5.0); Alkaline Phosphatase 81 U/L (39-117); Anion Gap 15 (12-20); Aspartate Amino Transferase 23 U/L (5-31); Bilirubin Total 0.8 mg/dL (0.0-1.0); Blood Urea Nitrogen 14 mg/dL (9-16); Calcium 9.3 mg/dL (8.4-10.2); Carbon Dioxide 23 mmol/L (22-29); Chloride 103 mmol/L (96-108); Creatinine Clr Calc Pharmacy 84.4; Estimated Glomerular Filt Rate > 60; Glucose Random 184 mg/dL (60-115); Potassium 3.9 mmol/L (3.3-5.1); Sodium 137 mmol/L (135-145)
[2024-04-21 22:20] VITALS: BP 91/50; PULSE 93; RESP 14; TEMP 36.7; O2SAT 97
[2024-04-21 23:13] VITALS: BP 94/50; PULSE 86; RESP 16; TEMP 36.8; O2SAT 98
[2024-04-21 23:14] VITALS: BP 94/50; PULSE 86; RESP 16; TEMP 36.8; O2SAT 98
== END 2024-04-21 23:15 | disposition home or self-care (01) ==
PROVIDERS: Emergency Provider Student in an Organized Health Care Education/Training Program
DX: T78.40XA Allergy, unspecified, initial encounter (principal); X58.XXXA Exposure to other specified factors, initial encounter
CPT/HCPCS: 36415; 80053; 85025; 93005; 96361; 96374; 96375; 99284; 99285; J1200

== ENCOUNTER → 2024-04-21 20:28 | Outpatient (BNV) | payer MEDICAID, SELFPAY | PROVIDERS: Emergency Provider Student in an Organized Health Care Education/Training Program; Visit Provider Internal Medicine Cardiovascular Disease | DX: T78.40XA Allergy, unspecified, initial encounter (principal) | CPT/HCPCS: 93010 ==

== ENCOUNTER 2025-02-18 15:04 | Emergency (ER) | payer MEDICAID, SELFPAY ==
--- NOTE | ~2025-02-18 | XR_ITS ---
EXAMINATION: XR CHEST CLINICAL INFORMATION: cough COMPARISON: X-ray 02/08/2024 TECHNIQUE: 2 views of the chest were obtained. FINDINGS: The lungs are well-expanded. There is no focal consolidation, edema or effusion. No pneumothorax. The cardiomediastinal silhouette is within normal limits. No acute osseous abnormality. XR/XR chest 2V IMPRESSION: No acute pulmonary disease. Electronically signed by: Joe Rodriguez MD 02/18/2025 03:58 PM EST
--- NOTE | 2025-02-18 15:23 | ECG_ITS ---
Test Reason : CHEST TIGHTNESS Blood Pressure : */* mmHG Vent. Rate : 111 BPM Atrial Rate : 111 BPM P-R Int : 114 ms QRS Dur : 76 ms QT Int : 292 ms P-R-T Axes : 47 24 29 degrees QTcB Int : 397 ms Sinus tachycardia Nonspecific ST abnormality Abnormal ECG When compared with ECG of 21-Apr-2024 20:37, No significant change was found Referred By: La Valenzuela Electronically Signed By: EMANUEL BEDOLLA MD
[2025-02-18 15:34] VITALS: BP 122/68; PULSE 123; RESP 20; TEMP 38; O2SAT 98; BMI 24.6
--- NOTE | 2025-02-18 15:38 | ED.URI ---
HPI - URI/Sore Throat General Chief Complaint: Upper Respiratory Symptoms Stated Complaint: Chest Tightness, Headache, Vomiting, Cough Time Seen by Provider: 02/18/25 19:12 Source: patient, RN notes reviewed and old records reviewed Mode of arrival: ambulatory History of Present Illness ED Provider: La Valenzuela PA-C HPI Narrative: 24-year-old female with no significant past medical history presenting to ED complaining of dry cough, congestion, chest discomfort with coughing, and fever since yesterday. + multiple sick contacts. Denies SOB, travel Related Data Previous Rx's ?Medication ?Instructions ?Recorded hydroxyzine HCl 25 mg tablet 25 mg PO Q8H PRN nausea and 12/11/21 vomiting #10 tabs olopatadine 0.1 % eye drops 1 drp ophthalmic (eye) BID #5 mL 12/11/21 (Pataday Twice Daily Relief) epinephrine 0.3 mg/0.3 mL 0.3 mg (0.3 mL) IM Q10M PRN 12/19/23 injection, auto-injector allergic reaction #2 ea ondansetron 4 mg disintegrating 4 mg PO Q6H PRN nausea and 02/08/24 tablet vomiting #15 tabs epinephrine 0.3 mg/0.3 mL 0.3 mg (0.3 mL) IM Q15M PRN 03/18/24 injection, auto-injector (EpiPen anaphylaxis #2 ea 2-Jeb) loratadine 10 mg tablet 10 mg PO DAILY PRN allergy 03/18/24 symptoms #20 tabs epinephrine 0.3 mg/0.3 mL 0.3 mg (0.3 mL) IM Q10M PRN 04/21/24 injection, auto-injector (EpiPen anaphylaxis #2 ea 2-Jeb) oseltamivir 75 mg capsule (Tamiflu) 75 mg PO Q12H 5 days #10 caps 02/18/25 Allergies Allergy/AdvReac Type Severity Reaction Status Date / Time avocado Allergy Itching Verified 02/18/25 15:41 banana Allergy Itching Verified 02/18/25 15:41 Peanut Butter Allergy Hives Verified 02/18/25 15:41 strawberry Allergy Itching Verified 02/18/25 15:41 Review of Systems Review of Systems: Yes all other systems are reviewed and are negative Constitutional: Constitutional: Reports as per HPI [facility] Past Medical History Attestation statement: The following information was validated with the patient. Source: old records reviewed Social History Social History Alcohol intake: never Patient Tobacco Use Status: Never used Tobacco Advance Directives: No Advance Directives Information Provided: Yes Do you have a plan to hurt others: No Plan Physical Exam Vital Signs: Vital Signs: Last Vital Signs Temp 100.2 F 02/18/25 19:18 Pulse 115 H 02/18/25 19:18 Resp 20 02/18/25 19:18 BP 117/60 02/18/25 19:18 Pulse Ox 97 02/18/25 19:18 O2 Del Method Room Air 02/18/25 19:18 BMI result Body Mass Index 24.6 Const: General: cooperative, healthy appearing and no acute distress Orientation/consciousness: patient oriented x3 Limitations: no limitations HEENT: Head: Yes normal to inspection and Yes atraumatic Ears: hearing grossly normal bilaterally General nose exam: Normal external nose present Face and sinus: Yes normal facial exam Eyes: General: appearance normal, both eyes and all related structures EOM: EOMs intact bilaterally Neck: Neck: Yes normal visual inspection and Yes no meningeal signs Resp: Effort & Inspection: normal respiratory effort and no respiratory distress Auscultation: clear to auscultation bilaterally, no crackles, no rales and no wheezes Cardio: Rate: regular rate Heart sounds: S1 normal heart sound present and S2 normal heart sound present Skin: Rashes: no rashes Wounds: no wounds Neuro: General: patient oriented x3, tone normal and no meningeal signs Cranial nerves: Yes CN's II-XII intact bilaterally Gait exam (Neuro): Normal gait present Extrem: General: Yes normal to inspection Course Course Course Narrative: This is a Rapid Medical Exam performed in triage by La Valenzuela PA-C. Full HPI, ROS and PE to be performed by primary ED provider. 24 yo F presenting to the ED c/o cough, congestion, chest pain with coughing, fever x yesterday. denies SOB PE: NAD, nontoxic appearing, talking in complete sentences Plan: Viral testing, rapid strep, EKG, CXR 7:15 PM 02/18/2025 (La Valenzuela PA-C): Influenza a positive XR chest 2V IMPRESSION: No acute pulmonary disease. Results discussed with patient including worrisome signs and symptoms and strict return precautions, and when to return to the emergency department. They verbalized understanding and feel safe for discharge at this time. Medications Administered Discontinued Medications Generic Name Dose Route Start Last Admin Trade Name Alonzoq PRN Reason Stop Dose Admin Ibuprofen 400 mg 02/18/25 15:39 02/18/25 19:22 Ibuprofen 400 Mg Tablet PO 02/18/25 15:40 400 mg ONCE ONE Administration Medical Decision Making Medical Decision Making [facility] Narrative: 24-year-old female with no significant past medical history presenting to ED complaining of dry cough, congestion, chest discomfort with coughing, and fever since yesterday. On exam low-grade temp 100.4 degrees, tachycardic likely from fever, NAD, talking in complete sentences, lungs CTA, nontoxic appearing. Concern for viral illness. No evidence of FOOD ASSEMBLER/retropharyngeal abscess. Lower suspicion for acute pneumonia at this time or ACS or PE Plan: EKG, Viral testing, rapid strep, CXR, p.o. Motrin, re-evaluate Please refer to course for remaining clinical decision making, interpretation of labs/imaging results, and discussions with consultants and/or family members. Differential Diagnosis Differential Diagnoses: The differential diagnosis associated with the presentation includes As above Admission/Observation Consideration of admission/observation: Escalation of care including admission/observation considered Lab Data [facility] Lab Attestation statement: I reviewed the patient's lab results. Labs: Lab Results 02/18/25 Range/Units 15:58 Influenza Type A (PCR) POSITIVE A (Negative) Influenza Type B (PCR) NEGATIVE (Negative) RSV RNA Qual (PCR) NEGATIVE (Negative) SARS-CoV-2 RNA (RT-PCR) NEGATIVE (Negative) S. pyogenes GrpA GERDA Negative (Negative) Independent Interpretation I performed an independent interpretation of an: EKG (My interpretation: EKG sinus tachycardia rate of 111. WI interval 114. No significant change when compared to prior. No STEMI) and Plain X-Ray Radiology Impression Discussion of test interpretation with radiology: I have reviewed the radiologist's reading. External Record Review External record reviewed: Inpatient record, Office record, Outpatient record, Prior outpatient labs, Prior outpatient radiology, Primary care record and Outside ED record Tests considered The following testing was considered but not selected: As above Prescription Management I considered prescription management with: Pain Medication, Antiviral and Antibiotic Chronic Conditions Patient?s care impacted by: Other Discharge Plan Discharge Clinical Impression: Influenza A Patient Disposition: Home, Self-Care Instructions: Influenza (DC) Additional Instructions: You have the flu. Tamiflu as an antiviral medication, please take as prescribed No antibiotics are indicated at this time Make sure you are staying hydrated. Drink plenty of fluids. Rest Alternate Tylenol and Motrin at home as needed for body aches and fever Follow-up with your doctor. If symptoms persist or worsen return to the emergency department *If you are a child & not tolerating liquid or urinating for more than 6 hours, or fevers are uncontrolled with medications at home, return to the emergency department* Prescriptions: New oseltamivir [Tamiflu] 75 mg capsule 75 mg PO Q12H 5 Days Qty: 10 0RF No Action hydroxyzine HCl 25 mg tablet 25 mg PO Q8H PRN (Reason: nausea and vomiting) Qty: 10 0RF olopatadine [Pataday Twice Daily Relief] 0.1 % drops 1 drp ophthalmic (eye) BID Qty: 5 0RF Rx Instructions: separate doses by at least 6-8 hours epinephrine 0.3 mg/0.3 mL auto-injector 0.3 mg IM Q10M PRN (Reason: allergic reaction) Qty: 2 0RF Rx Instructions: for 2 doses ondansetron 4 mg tablet,disintegrating 4 mg PO Q6H PRN (Reason: nausea and vomiting) Qty: 15 0RF epinephrine [EpiPen 2-Jeb] 0.3 mg/0.3 mL auto-injector 0.3 mg IM Q10M PRN (Reason: anaphylaxis) Qty: 2 0RF Rx Instructions: for 2 doses epinephrine [EpiPen 2-Jeb] 0.3 mg/0.3 mL auto-injector 0.3 mg IM Q15M PRN (Reason: anaphylaxis) Qty: 2 0RF Rx Instructions: for 2 doses loratadine 10 mg tablet 10 mg PO DAILY PRN (Reason: allergy symptoms) Qty: 20 0RF Referrals: Maddie Thompson DO [Primary Care Provider, Internal Medicine] - 1 week Stand Alone Forms: Work/School Release Print Language: Czech
[2025-02-18 16:16] LABS: IDNOW Serial# 58CA691E; Strep A Nucleic Acid Negative (Negative)
[2025-02-18 17:18] LABS: Resp Syncy Virus RNA Qual PCR NEGATIVE (Negative); SARS COV2 PCR INHOUSE NEGATIVE (Negative)
--- OUTSIDE RECORDS SUMMARY | 2025-02-18 17:44 | XMS_ITS | Clinical Summary ---
Author Organization [employer] Address [address] [place] [address] [address] [place] [address] Care Team Providers Care Airplane Flight Attendant Name Role Phone Maddie Thompson DO Primary Care Provider Allergies No known active allergies Medications olopatadine (Patanol) 0.1 % ophthalmic solution 1 DRP INTO THE EYE(S) 2 TIMES A DAY SEPARATE DOSES BY AT LEAST 6-8 HOURS 5 mL 1 07/20/19 23 Active cetirizine (ZyrTEC) 10 MG tablet Take 1 tablet (10 mg) by mouth Once per day. 90 tablet 3 01/06/20 24 Active diphenhydrAMIN E (BENADryl) 25 MG tablet Take 1 tablet (25 mg) by mouth every 4 (four) hours if needed for itching or allergies. 30 tablet 3 01/06/20 24 Active famotidine (Pepcid) 20 MG tablet Take 1 tablet (20 mg) by mouth at bedtime. 90 tablet 3 01/06/20 24 Active EPINEPHrine (Epipen) 0.3 MG/0.3ML injection syringe INJECT 0.3 MG (0.3 ML) INTRAMUSCULARLY EVERY 10 MINUTES NEEDED FOR ALLERGIC REACTION FOR 2 DOSES 2 each 3 01/09/20 24 Active Active Problems Problem Noted Date Diagnosed Date Allergic rhinitis 01/06/2024 Immunizations Immunization Administration Dates Next Due Influenza, seasonal, injectable, preservative fr ee 01/06/2024 Social History Tobacco Use Types Packs/Day Years Used Date Smoking Tobacco: Never Smokeless Tobacco: Never Tobacco Cessation:Counseling Given: Not Answered Comments Unknown Sex and Gender Information Value Date Recorded Sex Assigned at Female 12/24/2021 10:25 AM EDT Legal Sex Female 10:25 AM EDT Gender Identity Female 12/24/2021 10:25 AM EDT Sexual Orientation Choose not to disclose 2021 10:25 AM EDT Last Filed Vital Signs Vital Sign Reading Time Taken Comments Blood Pressure 111/66 01/06/2024 12:00 PM EST Pulse 67 01/06/2024 12:00 PM EST Temperature 36.1 C (97 F) 01/06/2024 12:00 PM EST Respiratory Rate 21 01/06/2024 12:00 PM EST Oxygen Saturation 100% 01/06/2024 12:00 PM EST Inhaled Oxygen Concentration - - Weight 50.5 kg (111 lb 6.4 oz) 01/06/2024 12:00 PM EST Height 149.9 cm (4' 11 ) 01/06/2024 12:00 PM EST Body Mass Index 22.5 01/06/2024 12:00 PM EST Plan of Treatment Upcoming Encounters Date Type Department Care Team (Late st Contact Info) Description 03/09/2025 10:30 AM EST Office Visit [facility] [address] [place] [address] Keith, Adrianne, OD [address] [place] [address] Health Maintenance Due Date Last Done Comments Depression Screening 2000 SDOH Screening 2000 Disability Screening 2000 Alcohol/Substance Use Screening 2012 Family Planning (PISQ) 06/08/2015 Pap Smear 08/15/2024 08/15/2021 COVID-19 Vaccine ( season) 2024 Influenza Vaccine (#1) 2024 , 12/11/2021, 02/25/2019, Additional history exists Tobacco Screening 01/05/2025 01/06/2024 DTaP/Tdap/Td Vaccines (9 - Td or Tdap) 04/04/2032 04/04/2022, 10/06/2018, 03/12/2012, Additional history exists Zoster Vaccines (1 of 2) 2050 RSV Patients and Patients Aged 60 years or older (1 - 1-dose 75+ series) 06/08/2075 HIB Vaccines Aged Out 01/06/2001, 2000 No lo nger eligible based on patient's age to complete this topic Hepatitis B Vaccines Completed 04/17/2001, 01/06/2001, 2000 IPV Vaccines Completed 07/18/2004, 05/26, 01/06/2001, Additional history exists HPV Vaccines Completed 07/07/2013, 02/24, 03/12/2012 Meningococcal Vaccine Completed 02/25/2019, 013 HIV Screening Completed 04/13/2019 Hepatitis C Screening Completed 04/13/2019 Hepatitis A Vaccines Aged Out No long er eligible based on patient's age to complete this topic Meningococcal B Vaccine Aged Out No l onger eligible based on patient's age to complete this topic Pneumococcal Vaccine: Pediatrics (0 to 5 Years) and At-Risk Patients (6 to 49) Years Aged Out No longer eligible based on patient's age to complete this topic RSV under 20 months Aged Out No longe r eligible based on patient's age to complete this topic Rotavirus Vaccines Aged Out No longer eligible based on patient's age to complete this topic Procedures Procedure Name Priority Date/Time Associated Diagnosis Comments THINPREP IMAGING SYSTEM PAP Routine 08/15/2021 3:09 PM EDT ZZZ HISTORICAL HEPATITIS C ANTIBODY Routine 04/13/2019 10:10 AM EST ZZZ HISTORICAL HIV AB/AG Routine 04/13/2019 10:10 AM EST from Last 3 Months or Most Recently Relevant to Health Maintenance Results * THINPREP TIS PAP (08/15/2021 3:09 PM EDT) Clinical Information: None given [facility] COMMENT SEE COMMENT [facility] Comment: EXPLANATORY NOTE: The Pap is a screening test for cervical cancer. It is not a diagnostic test and is subject to false negative and false positive results. It is most reliable when a satisfactory sample, regularly obtained, is submitted with relevant clinical findings and history, and when the Pap result is evaluated along with historic and current clinical information. Comment: This Pap test has been evaluated with computer assisted technology. [facility] Numerical Control Operator : SEE COMMENT [facility] Comment: [facility], CT(ASCP) CT screening location: [place] [address] Infection Shift in vaginal wisam suggestive of bacterial vaginosis. [facility] Interpretation/R esult: Negative for intraepithelial lesion or malignancy. [facility] LMP: 07/26/2021 [facility] Prev. BX: NONE [facility]IV[facility] Prev. PAP: NONE [facility]IVEN [facility] Review Numerical Control Operator : SEE COMMENT [facility] Comment: [facility], CT(ASCP) CT screening location: [address] [address] SOURCE: None given [facility] Statement Of Adequacy: SEE COMMENT [facility] Comment: Satisfactory for evaluation. Endocervical/transformation zone component present. 08/15/2021 3:09 PM EDT Julita ARMSTRONG LAB PATHOLOGY ORDERABLES Final Result Performing Organization Address [facility] de Phone Number [facility] [address] [place] [address], * HEPATITIS C ANTIBODY (04/13/2019 10:10 AM EST) HEPATITIS C ANTIBODY NONREACTIVE NONREACTIVE [facility] Comment: Antibodies to HCV not detected; does not exclude early acute HCV infection. 04/13/2019 10:1 0 AM EST Maddie Thompson DO HISTORICAL/NON ORDERABLE LAB S Final Result Performing Organization Address [facility] de Phone Number [facility] [address] [place] [address], * HIV AB/AG (04/13/2019 10:10 AM EST) HIV AG/AB NONREACTIVE NR [facility] Comment: HIV-1 p24 Ag and/or HIV-1/HIV-2 Ab not detected. A test result that is nonreactive does not exclude the possibility of exposure to or infection with HIV-1 and/or HIV-2. Nonreactive results in this assay for individuals with prior exposure to HIV-1 and/or HIV-2 may be due to antigen and antibody levels that are below the limit of detection of this assay. The [employer] Speedometer Inspector HIV Ag/Ab Combo assay result and supplemental assay results should be interpreted in conjunction with the patient's clinical presentation, history and other laboratory results. If the results are inconsistent with clinical evidence, additional testing is suggested to confirm the result. 04/13/2019 10:1 0 AM EST us Maddie Thompson DO HISTORICAL/NON ORDERABLE LAB S Final Result [facility] [address] from Last 3 Months or Most Recently Relevant to Health Maintenance Insurance [facility] Care Teams Airplane Flight Attendant Relationship Specialty Start Date End Date Maddie Thompson DO [address] [place] [address] LESLIE Ramirez [id number] PCP - General Family Medicine 02/15/19
[2025-02-18 19:18] VITALS: BP 117/60; PULSE 115; RESP 20; TEMP 37.9; O2SAT 97
[2025-02-18 19:59] VITALS: BP 117/60; PULSE 115; RESP 20; TEMP 37.9; O2SAT 97
== END 2025-02-18 20:00 | disposition home or self-care (01) ==
PROVIDERS: Physician Assistant; Emergency Provider Student in an Organized Health Care Education/Training Program; PCP Family Medicine
DX: J10.1 Influenza due to other identified influenza virus with other respiratory manifestations (principal); R51.9 Headache, unspecified; R05.9 Cough, unspecified; R07.9 Chest pain, unspecified; R11.10 Vomiting, unspecified
CPT/HCPCS: 71046; 87637; 87651; 93005; 99283; 99284

== ENCOUNTER → 2025-02-18 15:23 | Outpatient (BNV) | payer MEDICAID, SELFPAY | PROVIDERS: Emergency Provider Student in an Organized Health Care Education/Training Program; PCP Family Medicine; Visit Provider Internal Medicine Cardiovascular Disease | DX: R00.0 Tachycardia, unspecified (principal) | CPT/HCPCS: 93010 ==

== ENCOUNTER → 2025-02-18 15:39 | Outpatient (BNV) | payer MEDICAID, SELFPAY | PROVIDERS: PCP Family Medicine; Visit Provider Radiology Diagnostic Ultrasound | DX: R05.9 Cough, unspecified (principal) | CPT/HCPCS: 71046 ==